=== PATIENT | male | born 1995 | race Caucasian/White ===

== ENCOUNTER 2020-10-23 08:28 | Emergency (ER) | payer BC, MEDICAID ==
--- NOTE | 2020-10-23 09:24 | EDM.PDOC ---
ED HPI GENERAL MEDICAL PROBLEM - General Chief Complaint: Syncope Stated Complaint: SYNCOPE EPISODE Time Seen by Provider: 10/23/20 08:30 Source of Information: Reports: Patient History Limitations: Reports: No Limitations - History of Present Illness INITIAL COMMENTS - FREE TEXT/NARRATIVE: 25-year-old male presents to the emergency department with complaints of a syncopal episode while at work this morning. Patient states he got to work and was walking following a coworker and then states that he woke up laying on the ground. Coworkers witnessed the episode and states that he did come to shortly after the syncopal episode. Patient states he is a daily drinker, however states he did not drink as much last night as he normally does but did have at least 4 drinks. He also states he only ate supper at about 5 PM last evening and it was a pack of Ramen. He did not eat breakfast this morning and he did have an energy drink this morning as well. Patient did not take any medications and denies medical history. Denies shortness of breath, chest pain, palpitations, blurred vision or double vision. Onset: Today, Sudden - Related Data Allergies Allergy/AdvReac Type Severity Reaction Status Date / Time cefixime [From Suprax] Allergy Cannot Verified 10/23/20 08:53 Remember Penicillins Allergy Cannot Verified 10/23/20 08:53 Remember Home Meds: Home Meds Melatonin 3 mg PO ASDIRECTED PRN 10/23/20 [History] Past Medical History HEENT History: Reports: None Cardiovascular History: Reports: None Respiratory History: Reports: None Gastrointestinal History: Reports: GERD Genitourinary History: Reports: None Musculoskeletal History: Reports: None Neurological History: Reports: None Psychiatric History: Reports: None Endocrine/Metabolic History: Reports: None Hematologic History: Reports: None Immunologic History: Reports: None Oncologic (Cancer) History: Reports: None Dermatologic History: Reports: None - Infectious Disease History Infectious Disease History: Reports: None - Past Surgical History HEENT Surgical History: Reports: Oral Surgery, Tonsillectomy GI Surgical History: Reports: None Social & Family History - Family History Cardiac: Reports: CAD Musculoskeletal: Reports: Arthritis Oncologic: Reports: Lung, Other (See Below) - Tobacco Use Tobacco Use Status *Q: Current Every Day Tobacco User Years of Tobacco use: 5 Packs/Tins Daily: 1 - Caffeine Use Caffeine Use: Reports: Energy Drinks - Recreational Drug Use Recreational Drug Use: No Drug Use in Last 12 Months: No ED ROS GENERAL - Review of Systems Review Of Systems: See Below Constitutional: Reports: No Symptoms HEENT: Reports: No Symptoms Respiratory: Reports: No Symptoms Cardiovascular: Reports: Lightheadedness, Syncope Endocrine: Reports: No Symptoms GI/Abdominal: Reports: No Symptoms : Reports: No Symptoms Musculoskeletal: Reports: No Symptoms Skin: Reports: No Symptoms Neurological: Reports: No Symptoms Psychiatric: Reports: No Symptoms Hematologic/Lymphatic: Reports: No Symptoms Immunologic: Reports: No Symptoms - Physical Exam Exam: See Below Exam Limited By: No Limitations General Appearance: Alert, WD/WN, No Apparent Distress Eye Exam: Bilateral Eye: EOMI, PERRL Ears: Normal External Exam, Hearing Grossly Normal Nose: Normal Inspection Throat/Mouth: Normal Inspection, Normal Lips, Normal Voice, No Airway Compromise Head Exam: Atraumatic, Normocephalic Neck: Normal Inspection, Supple, Non-Tender, Full Range of Motion Respiratory/Chest: No Respiratory Distress, Lungs Clear, Normal Breath Sounds, No Accessory Muscle Use, Chest Non-Tender Cardiovascular: Normal Peripheral Pulses, Regular Rate, Rhythm, No Edema, No Murmur GI/Abdominal: Normal Bowel Sounds, Soft, Non-Tender (Male) Exam: Deferred Rectal (Males) Exam: Deferred Neuro Exam (Abbreviated): Alert, Oriented, Normal Cognition Back Exam: Normal Inspection, Full Range of Motion Extremities: Normal Inspection, Normal Range of Motion, Non-Tender, No Pedal Edema, Normal Capillary Refill Psychiatric: Normal Affect, Normal Mood Skin Exam: Warm, Dry, Intact, Normal Color, No Rash #1 Interpretation EKG Date: 10/23/20 Time: 08:50 Rhythm: NSR Rate (Beats/Min): 76 [place]: Normal P-Wave: Present QRS: Normal ST-T: Normal EKG Interpretation Comments: As interpreted by Dr. Galdamez: Sinus rhythm at 76/min, left atrial hypertrophy, nonspecific intraventricular conduction delay, T wave inversion V1 and V2 nonspecific, RSR prime V1 and V2 normal variant Course - Vital Signs Last Recorded V/S: Last Vital Signs Temp 97.1 F 10/23/20 08:57 Pulse 78 10/23/20 08:57 Resp 16 10/23/20 08:57 BP 147/89 H 10/23/20 08:57 Pulse Ox 100 10/23/20 08:57 Orthostatic Blood Pressure [ 133/60 Standing] Orthostatic Blood Pressure [ 134/94 Sitting] Orthostatic Blood Pressure [ 130/80 Supine] - Orders/Labs/Meds Orders: Active Orders 24 hr Category Date Time Status EKG Documentation Completion [RC] STAT Care 10/23/20 09:17 Active Dextrose 5%-Lactated Ringers 1,000 ml Med 10/23/20 09:30 Active IV ASDIRECTED Medication Orders Dextrose/Lactated Ringer's (Dextrose 5%-Lactated Ringers) 1,000 mls @ 999 mls/hr IV ASDIRECTED DEEPAK Last Admin: 10/23/20 09:44 Dose: 999 mls/hr Documented by: FEDE Labs: Laboratory Tests 10/23/20 10/23/20 10/23/20 Range/Units 09:05 09:05 09:05 WBC 6.23 (4.23-9.07) K/mm3 RBC 4.31 L (4.63-6.08) M/mm3 Hgb 15.0 (13.7-17.5) gm/dl Hct 44.0 (40.1-51.0) % MCV 102.1 H (79.0-92.2) fl MCH 34.8 H (25.7-32.2) pg MCHC 34.1 (32.2-35.5) g/dl RDW Std Deviation 45.1 H (35.1-43.9) fL Plt Count 281 (163-337) K/mm3 MPV 10.3 (9.4-12.3) fl Neut % (Auto) 58.7 (34.0-67.9) % Lymph % (Auto) 25.7 (21.8-53.1) % [place] % (Auto) 9.8 (5.3-12.2) % Eos % (Auto) 4.8 (0.8-7.0) Baso % (Auto) 0.8 (0.1-1.2) % Neut # (Auto) 3.66 (1.78-5.38) K/mm3 Lymph # (Auto) 1.60 (1.32-3.57) K/mm3 [place] # (Auto) 0.61 (0.30-0.82) K/mm3 Eos # (Auto) 0.30 (0.04-0.54) K/mm3 Baso # (Auto) 0.05 (0.01-0.08) K/mm3 Sodium 138 (136-145) mEq/L Potassium 3.4 L (3.5-5.1) mEq/L Chloride 98 (98-107) mEq/L Carbon Dioxide 26 (21-32) mEq/L Anion Gap 17.4 H (5-15) BUN 9 (7-18) mg/dL Creatinine 0.9 (0.7-1.3) mg/dL Est Cr Clr Drug Dosing 137.72 mL/min Estimated GFR (MDRD) > 60 (>60) mL/min BUN/Creatinine Ratio 10.0 L (14-18) Glucose 91 (74-106) mg/dL Calcium 9.1 (8.5-10.1) mg/dL Magnesium 2.1 (1.8-2.4) mg/dl Total Bilirubin 0.7 (0.2-1.0) mg/dL AST 125 H (15-37) U/L ALT 133 H (16-63) U/L Alkaline Phosphatase 91 (46-116) U/L Total Protein 7.7 (6.4-8.2) g/dl Albumin 4.4 (3.4-5.0) g/dl Globulin 3.3 gm/dL Albumin/Globulin Ratio 1.3 (1-2) Lipase 78 (73-393) U/L Meds: Medications Generic Name Dose Route Start Last Admin Trade Name Freq PRN Reason Stop Dose Admin Dextrose/Lactated Ringer's 1,000 mls @ 999 mls/hr 10/23/20 09:30 10/23/20 09:44 Dextrose 5%-Lactated Ringers IV 999 mls/hr ASDIRECTED [facility] Administration - Re-Assessments/Exams Free Text/Narrative Re-Assessment/Exam: 10/23/20 09:25 I have not ordered an EKG, CBC, CMP, magnesium, and for patient to have a D5 LR 1 L wide open. 10/23/20 11:36 Labs reveal WBC 6.23 hemoglobin 15.0 MCV 102.1, sodium 138, potassium 3.4, anion gap 17.4, glucose 91, magnesium 2.1, total bili 0.7, AST 125, ALT 133, lipase is 78. 10/23/20 11:48 Patient reports feeling better after receiving a liter of fluids. Liver enzymes are elevated. I did discuss this with the patient regarding the need for him to decrease his drinking as his liver is already showing a fax. Patient's response is that he just knows. I will discharge the patient to home. Departure - Departure Time of Disposition: 11:55 Disposition: Home, Self-Care 01 Condition: Good Clinical Impression: Syncope due to orthostatic hypotension - Discharge Information Instructions: Orthostatic Hypotension, Dehydration, Adult, [id number] Referrals: PCP,None [Primary Care Provider] - Forms: ED Department Discharge Additional Instructions: You were seen in the emergency department with complaints of fainting while at work. An EKG was completed which did not show any issues with your heart. Lab work was completed which does show that your potassium level is slightly low you need to drink 2-3 Gatorade's today. this is likely due to not eating enough and alcohol intake. Your liver enzymes are also highly elevated which show that your history of drinking is having an effect on your liver. You need to stop drinking. Should your condition worsen or change please follow-up with your primary physician or return to the emergency room as needed. Sepsis Event Note (ED) - Evaluation Sepsis Screening Result: No Definite Risk - Focused Exam Vital Signs: Vital Signs Temp Pulse Resp BP Pulse Ox 10/23/20 08:57 97.1 F 78 16 147/89 H 100 - My Orders Last 24 Hours: My Active Orders 10/23/20 09:17 EKG Documentation Completion [RC] STAT 10/23/20 09:30 Dextrose 5%-Lactated Ringers 1,000 ml IV ASDIRECTED - Assessment/Plan Last 24 Hours: My Active Orders 10/23/20 09:17 EKG Documentation Completion [RC] STAT 10/23/20 09:30 Dextrose 5%-Lactated Ringers 1,000 ml IV ASDIRECTED
[2020-10-23] MEDS ORDERED: Dextrose 5%-Lactated Ringers 1,000 ML IV SCH (09:30)
== END 2020-10-23 12:30 | disposition home or self-care (01) ==
LOC: JD.ED 08:28
DX: I95.1 Orthostatic hypotension (principal); F17.210 Nicotine dependence, cigarettes, uncomplicated; Z88.1 Allergy status to other antibiotic agents; Z88.0 Allergy status to penicillin
CPT/HCPCS: 36415; 80053; 83690; 83735; 85025; 93005; 99284; J7121; 93010; 99283

== ENCOUNTER 2021-08-27 13:30 | Emergency (ER) | payer SELFPAY ==
[2021-08-27] MEDS ORDERED: Sodium Chloride 0.9% 1,000 ML IV ONE (14:31)
[2021-08-27] MEDS ORDERED: Sodium Chloride 0.9% 10 ML Syringe FLUSH PRN (14:31)
--- NOTE | 2021-08-27 15:01 | EDM.PDOC ---
ED HPI GENERAL MEDICAL PROBLEM - General Chief Complaint: Drug or Alcohol Abuse Stated Complaint: MEDICAL CHECK Time Seen by Provider: 08/27/21 14:31 Source of Information: Reports: Patient, RN Notes Reviewed History Limitations: Reports: No Limitations - History of Present Illness INITIAL COMMENTS - FREE TEXT/NARRATIVE: Patient is a 26-year-old male who presents to the ER for medical clearance to be admitted to [facility]. Patient states he is an everyday drinker, he likes to drink vodka. States that he is only tried to stop drinking one time before, he got about 24 hours in and started feeling pretty rotten so he continued drinking. He states that he used to drink a lot heavier, but is now down to about 7 shooters a day. He is denying any sick-like symptoms fevers or chills, cough or shortness of breath or any sort of nausea/vomiting/diarrhea. Patient states he would like to stop drinking at this time, as he is having increasing depression in his life, and has realized that it is "ruining his life" so he would like to make a change for the better. States his last alcohol intake was around 8 or 9 this morning. - Related Data Allergies Allergy/AdvReac Type Severity Reaction Status Date / Time cefixime [From Suprax] Allergy Cannot Verified 08/27/21 14:01 Remember Penicillins Allergy Cannot Verified 08/27/21 14:01 Remember Home Meds: Home Meds Melatonin 3 mg PO ASDIRECTED PRN 10/23/20 [History] LORazepam [Ativan] 1 mg PO TID #12 tab 08/27/21 [Rx] Ondansetron [Zofran ODT] 4 mg PO Q8H #15 tab.dis 08/27/21 [Rx] Past Medical History HEENT History: Reports: None Cardiovascular History: Reports: None Respiratory History: Reports: None Gastrointestinal History: Reports: GERD Genitourinary History: Reports: None Musculoskeletal History: Reports: None Neurological History: Reports: None Psychiatric History: Reports: None Endocrine/Metabolic History: Reports: None Hematologic History: Reports: None Immunologic History: Reports: None Oncologic (Cancer) History: Reports: None Dermatologic History: Reports: None - Infectious Disease History Infectious Disease History: Reports: None - Past Surgical History HEENT Surgical History: Reports: Oral Surgery, Tonsillectomy GI Surgical History: Reports: None Social & Family History - Family History Cardiac: Reports: CAD Musculoskeletal: Reports: Arthritis Oncologic: Reports: Lung, Other (See Below) - Tobacco Use Tobacco Use Status *Q: Never Tobacco User - Caffeine Use Caffeine Use: Reports: Energy Drinks - Alcohol Use Alcohol Use History: Yes ED ROS GENERAL - Review of Systems Review Of Systems: Comprehensive ROS is negative, except as noted in HPI. ED EXAM, GENERAL - Physical Exam Exam: See Below Exam Limited By: No Limitations General Appearance: Alert, WD/WN, No Apparent Distress Respiratory/Chest: No Respiratory Distress, Lungs Clear, Normal Breath Sounds, No Accessory Muscle Use, Chest Non-Tender Cardiovascular: Normal Peripheral Pulses, Regular Rate, Rhythm, No Edema Extremities: Normal Inspection, Normal Capillary Refill Neurological: Alert, Oriented, Normal Cognition, No Motor/Sensory Deficits Psychiatric: Normal Affect, Normal Mood Skin Exam: Warm, Dry, Intact, Normal Color, No Rash Course - Vital Signs Last Recorded V/S: Last Vital Signs Temp 98.7 F 08/27/21 13:59 Pulse 78 08/27/21 13:59 Resp 18 08/27/21 13:59 BP 127/76 08/27/21 13:59 Pulse Ox 98 08/27/21 13:59 - Orders/Labs/Meds Orders: Active Orders 24 hr Category Date Time Status Peripheral IV Care [RC] . DIRECTED Care 08/27/21 14:32 Active Sodium Chloride 0.9% [Saline Flush] Med 08/27/21 14:31 Active 10 ml FLUSH ASDIRECTED PRN Peripheral IV Insertion Adult [OM.PC] Stat Oth 08/27/21 14:32 Ordered Medication Orders Sodium Chloride (Sodium Chloride 0.9% 10 Ml Syringe) 10 ml FLUSH ASDIRECTED PRN PRN Reason: Keep Vein Open Last Admin: 08/27/21 14:50 Dose: 10 ml Documented by: KRIS Labs: Laboratory Tests 08/27/21 08/27/21 08/27/21 Range/Units 14:50 14:50 15:00 WBC 6.35 (4.23-9.07) K/mm3 RBC 4.60 L (4.63-6.08) M/mm3 Hgb 16.1 (13.7-17.5) gm/dl Hct 47.3 (40.1-51.0) % MCV 102.8 H (79.0-92.2) fl MCH 35.0 H (25.7-32.2) pg MCHC 34.0 (32.2-35.5) g/dl RDW Std Deviation 48.5 H (35.1-43.9) fL Plt Count 343 H (163-337) K/mm3 MPV 10.8 (9.4-12.3) fl Neut % (Auto) 56.1 (34.0-67.9) % Lymph % (Auto) 27.2 (21.8-53.1) % [place] % (Auto) 10.2 (5.3-12.2) % Eos % (Auto) 5.4 (0.8-7.0) Baso % (Auto) 0.9 (0.1-1.2) % Neut # (Auto) 3.56 (1.78-5.38) K/mm3 Lymph # (Auto) 1.73 (1.32-3.57) K/mm3 [place] # (Auto) 0.65 (0.30-0.82) K/mm3 Eos # (Auto) 0.34 (0.04-0.54) K/mm3 Baso # (Auto) 0.06 (0.01-0.08) K/mm3 Sodium 142 (136-145) mEq/L Potassium 4.4 (3.5-5.1) mEq/L Chloride 103 (98-107) mEq/L Carbon Dioxide 27 (21-32) mEq/L Anion Gap 16.4 H (5-15) BUN 6 L (7-18) mg/dL Creatinine 0.8 (0.7-1.3) mg/dL Est Cr Clr Drug Dosing 153.58 mL/min Estimated GFR (MDRD) > 60 (>60) mL/min BUN/Creatinine Ratio 7.5 L (14-18) Glucose 90 (70-99) mg/dL Calcium 9.8 (8.5-10.1) mg/dL Total Bilirubin 0.4 (0.2-1.0) mg/dL AST 42 H (15-37) U/L ALT 70 H (16-63) U/L Alkaline Phosphatase 85 (46-116) U/L Total Protein 7.7 (6.4-8.2) g/dl Albumin 4.5 (3.4-5.0) g/dl Globulin 3.2 gm/dL Albumin/Globulin Ratio 1.4 (1-2) Ethyl Alcohol 0.02 (0.00) gm% SARS-CoV-2 RNA (JUAN C) Negative (NEGATIVE) Meds: Medications Generic Name Dose Route Start Last Admin Trade Name Dottie PRN Reason Stop Dose Admin Sodium Chloride 10 ml 08/27/21 14:31 08/27/21 14:50 Sodium Chloride 0.9% 10 Ml Syringe FLUSH 10 ml ASDIRECTED PRN Administration Keep Vein Open Discontinued Medications Generic Name Dose Route Start Last Admin Trade Name Dottie PRN Reason Stop Dose Admin Sodium Chloride 1,000 mls @ 999 mls/hr 08/27/21 14:31 08/27/21 14:50 Normal Saline IV 08/27/21 15:31 999 mls/hr ONETIME ONE Administration - Re-Assessments/Exams Free Text/Narrative Re-Assessment/Exam: 08/27/21 15:00 Patient presents to the ER for medical clearance. We will go ahead and get some basic labs, and do a Covid swab just to make sure that he is not an asymptomatic carrier due to him going into a [facility] type setting. Patient is able to talk with me pretty normally, so he should be able to be expeditiously discharged into the care [facility]; pending normal labs and work-up. 08/27/21 16:08 Patient's labs have resulted, he is Covid negative, blood alcohol level is 0.02. Metabolic panel is unremarkable for any acute issues as well. We will go ahead and discharge him into the care of [facility] at this time. Departure - Departure Time of Disposition: 16:09 Disposition: DC/Tfer to Other 70 Condition: Good Clinical Impression: Alcohol abuse, General medical examination - Discharge Information *PRESCRIPTION DRUG MONITORING PROGRAM REVIEWED*: No *COPY OF PRESCRIPTION DRUG MONITORING REPORT IN PATIENT FRANCISCA: No Prescriptions: LORazepam [Ativan] 1 mg PO TID #12 tab Ondansetron [Zofran ODT] 4 mg PO Q8H #15 tab.dis Instructions: Alcohol Use Disorder Referrals: PCP,None [Primary Care Provider] - Forms: ED Department Discharge Additional Instructions: You were evaluated in the ER today for medical clearance to be admitted into a crisis bed at [facility]. Your blood alcohol level was found to be 0.02, you have been given IV fluids while you were in the ER. Upon discharge, your vitals were stable, and you have been deemed fit to go to the crisis bed in [facility] for further alcohol detox management. You have been given 2 different prescriptions: Ativan (lorazepam), you will need to take 1 tab TID x2 days, then 1 tab BID x2 days, then 1 tab daily x2 days. Zofran (ondansetron), you will take 1 tablet every 8 hours dissolvable in your tongue for nausea. This medication was electronically sent to the [place] [facility] located in the [employer] store. Please do not hesitate to return to the ER at any time if your symptoms change or worsen. Sepsis Event Note (ED) - Evaluation Sepsis Screening Result: No Definite Risk - Focused Exam Vital Signs: Vital Signs Temp Pulse Resp BP Pulse Ox 08/27/21 13:59 98.7 F 78 18 127/76 98 - My Orders Last 24 Hours: My Active Orders 08/27/21 14:31 Sodium Chloride 0.9% [Saline Flush] 10 ml FLUSH ASDIRECTED PRN 08/27/21 14:32 Peripheral IV Care [RC] . DIRECTED Peripheral IV Insertion Adult [OM.PC] Stat - Assessment/Plan Last 24 Hours: My Active Orders 08/27/21 14:31 Sodium Chloride 0.9% [Saline Flush] 10 ml FLUSH ASDIRECTED PRN 08/27/21 14:32 Peripheral IV Care [RC] . DIRECTED Peripheral IV Insertion Adult [OM.PC] Stat
== END 2021-08-27 17:09 | disposition other institution (70) ==
LOC: JD.ED 13:30
DX: F10.10 Alcohol abuse, uncomplicated (principal); Y90.0 Blood alcohol level of less than 20 mg/100 ml; Z88.1 Allergy status to other antibiotic agents; Z88.0 Allergy status to penicillin; Z20.822 Contact with and (suspected) exposure to COVID-19
CPT/HCPCS: 36415; 80053; 80307; 85025; 87635; 99283; J7030; U0002

== ENCOUNTER 2021-10-24 12:46 | Emergency (ER) | payer SELFPAY ==
[2021-10-24] MEDS ORDERED: Sodium Chloride 0.9% 1,000 ML IV ONE (13:46)
[2021-10-24] MEDS ORDERED: Ondansetron 4 MG/2 ML SDV IVPUSH ONE (13:46)
--- NOTE | 2021-10-24 13:47 | EDM.PDOC ---
<Rosa Elena Greenberg V - Last Filed: 10/24/21 16:49> ED HPI GENERAL MEDICAL PROBLEM - General Chief Complaint: General Stated Complaint: mental health Time Seen by Provider: 10/24/21 12:59 - Related Data Allergies Allergy/AdvReac Type Severity Reaction Status Date / Time cefixime [From Suprax] Allergy Cannot Verified 10/24/21 13:03 Remember Penicillins Allergy Cannot Verified 10/24/21 13:03 Remember Home Meds: Home Meds LORazepam [Ativan] 1 mg PO TID #12 tab 10/24/21 [Rx] Ondansetron [Zofran ODT] 4 mg PO Q8H #15 tab.dis 10/24/21 [Rx] Course - Re-Assessments/Exams Free Text/Narrative Re-Assessment/Exam: 10/24/21 16:36 Patient Case taken over by PETAR Rivera. She did tell me that the patient is supposed to be evaluated by [facility], and to return there for alcohol detox. Apparently they were fairly busy, so we will await them for ongoing management. Likely the patient can be discharged into their care with Ativan and Zofran. 10/24/21 16:49 Was made aware by RN taking care of the patient that patient is cleared to go to [facility] once he is medically stable, I will provide him with some Ativan and Zofran tablets for ongoing management and then he can be discharged into the care of [facility] services. Departure - Departure Time of Disposition: 16:50 Disposition: Home, Self-Care 01 Condition: Good Clinical Impression: Alcohol abuse Alcohol withdrawal Qualifiers: Complication of substance-induced condition: uncomplicated Qualified Code(s): F10.230 - Alcohol dependence with withdrawal, uncomplicated - Discharge Information *PRESCRIPTION DRUG MONITORING PROGRAM REVIEWED*: Yes *COPY OF PRESCRIPTION DRUG MONITORING REPORT IN PATIENT FRANCISCA: No Prescriptions: LORazepam [Ativan] 1 mg PO TID #12 tab Ondansetron [Zofran ODT] 4 mg PO Q8H #15 tab.dis Instructions: Alcohol Abuse and Nutrition, Alcohol Withdrawal Syndrome, [id number] Referrals: PCP,None [Primary Care Provider] - Forms: ED Department Discharge Additional Instructions: You were evaluated in the ER today for medical clearance to be admitted into a crisis bed at [facility]. Your blood alcohol level was found to be 0.19. Upon discharge, your vitals were stable, and you have been deemed fit to go to the crisis bed in [facility] for further alcohol detox management. You have been given 2 different prescriptions: Ativan (lorazepam), you will need to take 1 tab TID x2 days, then 1 tab BID x2 days, then 1 tab daily x2 days. Zofran (ondansetron), you will take 1 tablet every 8 hours dissolvable in your t ongue for nausea. These medications were electronically prescribed to this medication was electronically sent to the [facility] pharmacy located on [place]. Please do not hesitate to return to the ER at any time if your symptoms change or worsen. <Jens Petersen - Last Filed: 10/28/21 20:09> ED HPI GENERAL MEDICAL PROBLEM - General Source of Information: Reports: Patient History Limitations: Reports: No Limitations - History of Present Illness INITIAL COMMENTS - FREE TEXT/NARRATIVE: 26-year-old male presents the emergency department today with complaints of suicidal thoughts and alcohol abuse. Patient states that he has had suicidal thoughts since Thursday. States that he was at work today and he did attempt to cut his wrist with a crepe box tender. Reports that his boss walked in and caught him and stopped him from doing so. Patient's mom then did bring him to the emergency department. He states on Thursday he got severely depressed and was contemplating suicide. He states he did call his mom and they drove around for several hours and he was able to vent. However he then went home and got extremely intoxicated and took a handful of household medications. He is unsure what he took however he states Tylenol was one of the medications. States that starting about the age 18 he began binge drinking however since the age of 23 he has been drinking daily to the point of severe intoxication. He states he drinks at least a liter of vodka daily. Denies any homicidal thoughts. He denies visual or auditory hallucinations. States he drank heavily last evening and already has been drinking this morning with his last drink being at approximately 3 hours ago. States he does have a history of recreational drug use in the past, specifically marijuana and cocaine however he states it has been approximately 4 to 5 years since he has last used. He does smoke cigarettes and smokes approximately 1 pack/day. States that approximately 1 month ago he did stay at [facility] for approximately 3 days and went through alcohol detox. He states that after the 3 days they let him go with recommendations that he follow-up with a psychiatrist or counselor and he did not. He denies any history of seizure. States he has been eating well and had a normal appetite. States that since about the age of 18 he has had difficulty sleeping. Difficulty falling asleep and difficulty staying asleep. Past Medical History HEENT History: Reports: None Cardiovascular History: Reports: None Respiratory History: Reports: None Gastrointestinal History: Reports: GERD Genitourinary History: Reports: None Musculoskeletal History: Reports: None Neurological History: Reports: None Psychiatric History: Reports: None Endocrine/Metabolic History: Reports: None Hematologic History: Reports: None Immunologic History: Reports: None Oncologic (Cancer) History: Reports: None Dermatologic History: Reports: None - Infectious Disease History Infectious Disease History: Reports: None - Past Surgical History HEENT Surgical History: Reports: Oral Surgery, Tonsillectomy GI Surgical History: Reports: None Social & Family History - Family History Cardiac: Reports: CAD Musculoskeletal: Reports: Arthritis Oncologic: Reports: Lung, Other (See Below) - Tobacco Use Tobacco Use Status *Q: Former Tobacco User Years of Tobacco use: 6 Packs/Tins Daily: 1 Used Tobacco, but Quit: No - Caffeine Use Caffeine Use: Reports: Coffee, Energy Drinks, Soda - Alcohol Use Days Per Week of Alcohol Use: 5 Number of Drinks Per Day: 8 Total Drinks Per Week: 40 - Recreational Drug Use Recreational Drug Use: No ED ROS GENERAL - Review of Systems Review Of Systems: Comprehensive ROS is negative, except as noted in HPI. ED EXAM, GENERAL - Physical Exam Exam: See Below Exam Limited By: No Limitations General Appearance: Alert, WD/WN, No Apparent Distress Ears: Normal External Exam, Hearing Grossly Normal Nose: Normal Inspection Throat/Mouth: Normal Inspection, Normal Lips, Normal Voice, No Airway Compromise Head: Atraumatic Neck: Normal Inspection, Supple Respiratory/Chest: No Respiratory Distress, Lungs Clear, Normal Breath Sounds, No Accessory Muscle Use, Chest Non-Tender Cardiovascular: Normal Peripheral Pulses, Regular Rate, Rhythm, No Edema, No Murmur GI/Abdominal: Normal Bowel Sounds, Soft, Non-Tender, No Distention (Male) Exam: Deferred Rectal (Males) Exam: Deferred Back Exam: Normal Inspection Extremities: Normal Range of Motion, Non-Tender, No Pedal Edema, Normal Capillary Refill, Other (2 cm superficial vertical laceration noted to left inner wrist) Neurological: Alert, Oriented, Normal Cognition Psychiatric: Flat Affect Skin Exam: Warm, Dry, Normal Color, No Rash, Wound/Incision (2 cm superficial vertical laceration noted to left inner wrist) Lymphatic: No Adenopathy #1 Interpretation EKG Date: 10/24/21 Time: 14:28 Rhythm: NSR Rate (Beats/Min): 69 [place]: Normal P-Wave: Present QRS: Normal ST-T: Normal QT: Normal Comparison: NA - No Prior EKG EKG Interpretation Comments: Per Dr. Morgan interpretation: Sinus rhythm at a rate of 69 bpm; Q waves V2 and V3; slight ST depression in aVL Course - Vital Signs Text/Narrative:: As stated above, patient presents with history of alcoholism and suicidal ideations with a near attempt this morning. Physical exam is essentially unremarkable. Will obtain lab studies as well as Covid swab. At this time patient is agreeable to go for inpatient treatment. I have paged our hospital socially responsible investment adviser, Steff, to assist with this. We will have nursing staff place an IV. I have ordered for the patient to receive a liter of normal saline as well as Zofran 4 mg IV for nausea. Last Recorded V/S: Last Vital Signs Temp 98.2 F 10/24/21 12:56 Pulse 94 10/24/21 12:56 Resp 16 10/24/21 12:56 BP 128/83 10/24/21 12:56 Pulse Ox 99 10/24/21 12:56 - Orders/Labs/Meds Labs: Laboratory Tests 10/24/21 10/24/21 10/24/21 Range/Units 14:28 14:28 14:28 WBC 4.59 (4.23-9.07) K/mm3 RBC 4.42 L (4.63-6.08) M/mm3 Hgb 15.6 (13.7-17.5) gm/dl Hct 45.6 (40.1-51.0) % MCV 103.2 H (79.0-92.2) fl MCH 35.3 H (25.7-32.2) pg MCHC 34.2 (32.2-35.5) g/dl RDW Std Deviation 46.1 H (35.1-43.9) fL Plt Count 276 (163-337) K/mm3 MPV 10.5 (9.4-12.3) fl Neut % (Auto) 57.2 (34.0-67.9) % Lymph % (Auto) 29.4 (21.8-53.1) % [place] % (Auto) 9.2 (5.3-12.2) % Eos % (Auto) 3.1 (0.8-7.0) Baso % (Auto) 1.1 (0.1-1.2) % Neut # (Auto) 2.63 (1.78-5.38) K/mm3 Lymph # (Auto) 1.35 (1.32-3.57) K/mm3 [place] # (Auto) 0.42 (0.30-0.82) K/mm3 Eos # (Auto) 0.14 (0.04-0.54) K/mm3 Baso # (Auto) 0.05 (0.01-0.08) K/mm3 Sodium 141 (136-145) mEq/L Potassium 4.6 (3.5-5.1) mEq/L Chloride 104 (98-107) mEq/L Carbon Dioxide 28 (21-32) mEq/L Anion Gap 13.6 (5-15) BUN 9 (7-18) mg/dL Creatinine 0.8 (0.7-1.3) mg/dL Est Cr Clr Drug Dosing 153.58 mL/min Estimated GFR (MDRD) > 60 (>60) mL/min BUN/Creatinine Ratio 11.3 L (14-18) Glucose 93 (70-99) mg/dL Calcium 8.8 (8.5-10.1) mg/dL Magnesium 2.1 (1.8-2.4) mg/dL Total Bilirubin 0.5 (0.2-1.0) mg/dL AST 54 H (15-37) U/L ALT 58 (16-63) U/L Alkaline Phosphatase 91 (46-116) U/L Total Protein 7.5 (6.4-8.2) g/dl Albumin 4.3 (3.4-5.0) g/dl Globulin 3.2 gm/dL Albumin/Globulin Ratio 1.3 (1-2) TSH 3rd Generation 0.735 (0.358-3.74) uIU/mL Urine Color (Yellow) Urine Appearance (Clear) Urine pH (5.0-8.0) Ur Specific [place] (1.005-1.030) Urine Protein (Negative) Urine Glucose (UA) (Negative) Urine Ketones (Negative) Urine Occult Blood (Negative) Urine Nitrite (Negative) Urine Bilirubin (Negative) Urine Urobilinogen (0.2-1.0) Ur Leukocyte Esterase (Negative) Salicylates 0.8 L (2.8-20) mg/dL Urine Opiates Screen (HIQBRO=639) Ur Buprenorphine Scrn (CUTOFF=10) Ur Oxycodone Screen (YTQ5XF=277) Urine Methadone Screen (ZGW6XN=359) Ur Propoxyphene Screen (ALORXT=093) Acetaminophen 0 L (10-30) ug/mL Ur Barbiturates Screen (XSFPMT=146) Ur Tricyclics Screen (VLFEAH=806) Ur Phencyclidine Scrn (CUTOFF=25) Ur Amphetamine Screen (RQLOMN=650) U Methamphetamines Scrn (CIUYVN=117) U Benzodiazepines Scrn (VYXHLL=090) U Cocaine Metab Screen (OWXEYI=181) U Marijuana (THC) Screen (CUTOFF=50) Ethyl Alcohol 0.19 (0.00) gm% 10/24/21 10/24/21 Range/Units 15:35 15:35 WBC (4.23-9.07) K/mm3 RBC (4.63-6.08) M/mm3 Hgb (13.7-17.5) gm/dl Hct (40.1-51.0) % MCV (79.0-92.2) fl MCH (25.7-32.2) pg MCHC (32.2-35.5) g/dl RDW Std Deviation (35.1-43.9) fL Plt Count (163-337) K/mm3 MPV (9.4-12.3) fl Neut % (Auto) (34.0-67.9) % Lymph % (Auto) (21.8-53.1) % [place] % (Auto) (5.3-12.2) % Eos % (Auto) (0.8-7.0) Baso % (Auto) (0.1-1.2) % Neut # (Auto) (1.78-5.38) K/mm3 Lymph # (Auto) (1.32-3.57) K/mm3 [place] # (Auto) (0.30-0.82) K/mm3 Eos # (Auto) (0.04-0.54) K/mm3 Baso # (Auto) (0.01-0.08) K/mm3 Sodium (136-145) mEq/L Potassium (3.5-5.1) mEq/L Chloride (98-107) mEq/L Carbon Dioxide (21-32) mEq/L Anion Gap (5-15) BUN (7-18) mg/dL Creatinine (0.7-1.3) mg/dL Est Cr Clr Drug Dosing mL/min Estimated GFR (MDRD) (>60) mL/min BUN/Creatinine Ratio (14-18) Glucose (70-99) mg/dL Calcium (8.5-10.1) mg/dL Magnesium (1.8-2.4) mg/dL Total Bilirubin (0.2-1.0) mg/dL AST (15-37) U/L ALT (16-63) U/L Alkaline Phosphatase (46-116) U/L Total Protein (6.4-8.2) g/dl Albumin (3.4-5.0) g/dl Globulin gm/dL Albumin/Globulin Ratio (1-2) TSH 3rd Generation (0.358-3.74) uIU/mL Urine Color Yellow (Yellow) Urine Appearance Clear (Clear) Urine pH 7.0 (5.0-8.0) Ur Specific [place] 1.020 (1.005-1.030) Urine Protein Negative (Negative) Urine Glucose (UA) Negative (Negative) Urine Ketones Negative (Negative) Urine Occult Blood Negative (Negative) Urine Nitrite Negative (Negative) Urine Bilirubin Negative (Negative) Urine Urobilinogen 4.0 H (0.2-1.0) Ur Leukocyte Esterase Negative (Negative) Salicylates (2.8-20) mg/dL Urine Opiates Screen Negative (IGNEGF=415) Ur Buprenorphine Scrn Negative (CUTOFF=10) Ur Oxycodone Screen Negative (BLZ7NF=612) Urine Methadone Screen Negative (TYW3SR=097) Ur Propoxyphene Screen Negative (DKZXWC=294) Acetaminophen (10-30) ug/mL Ur Barbiturates Screen Negative (EUVRKZ=638) Ur Tricyclics Screen Negative (CEVYOI=526) Ur Phencyclidine Scrn Negative (CUTOFF=25) Ur Amphetamine Screen Negative (WDNPUW=316) U Methamphetamines Scrn Negative (DKFWTC=416) U Benzodiazepines Scrn Negative (LWXUVV=396) U Cocaine Metab Screen Negative (BQOKIA=973) U Marijuana (THC) Screen Negative (CUTOFF=50) Ethyl Alcohol (0.00) gm% Meds: Medications Discontinued Medications Generic Name Dose Route Start Last Admin Trade Name Freq PRN Reason Stop Dose Admin Sodium Chloride 1,000 mls @ 999 mls/hr 10/24/21 13:46 10/24/21 14:30 Normal Saline IV 10/24/21 14:46 999 mls/hr ONETIME ONE Administration Lorazepam 1 mg 10/24/21 16:06 10/24/21 17:04 Lorazepam 1 Mg Tab PO 10/24/21 16:07 1 mg ONETIME ONE Administration Ondansetron HCl 4 mg 10/24/21 13:46 10/24/21 14:30 Ondansetron 4 Mg/2 Ml Sdv IVPUSH 10/24/21 13:47 4 mg ONETIME ONE Administration - Re-Assessments/Exams Free Text/Narrative Re-Assessment/Exam: 10/24/21 15:40 Hospital socially responsible investment adviserSteff has been in to evaluate the patient. Patient is requesting to go back to [facility] [place] for treatment. [facility] services who will be here to evaluate the patient. 10/24/21 16:07 Hematology is essentially unremarkable Chemistry reveals an AST of 54, ALT 58, TSH 0.735 Urinalysis reveals 4.0 urobilinogen Toxicology reveals a salicylate level of 0.8, acetaminophen level 0, ethyl alcohol 0.19 and urine drug screen is negative Sepsis Event Note (ED) - Evaluation Sepsis Screening Result: No Definite Risk
[2021-10-24 15:12] LABS: ACETAMINOPHEN 0 ug/mL (10-30)
[2021-10-24] MEDS ORDERED: LORazepam 1 MG Tab PO ONE (16:06)
== END 2021-10-24 17:00 | disposition home or self-care (01) ==
LOC: JD.ED 12:46
DX: F10.230 Alcohol dependence with withdrawal, uncomplicated (principal); Z88.0 Allergy status to penicillin; Z88.1 Allergy status to other antibiotic agents; Z87.891 Personal history of nicotine dependence; Y90.5 Blood alcohol level of 100-119 mg/100 ml
CPT/HCPCS: 36415; 80053; 80143; 80179; 80306; 80307; 81003; 83735; 84443; 85025; 93005; 96374; 99285; A9270; J2405; J7030

== ENCOUNTER 2022-04-08 13:59 | Emergency (ER) | payer SELFPAY ==
[2022-04-08] MEDS ORDERED: Sodium Chloride 0.9% 10 ML Syringe FLUSH PRN (14:49)
[2022-04-08] MEDS ORDERED: Ondansetron 4 MG/2 ML SDV IVPUSH ONE (14:49)
[2022-04-08] MEDS ORDERED: Famotidine 20 MG/2 ML SDV IVPUSH ONE (14:49)
[2022-04-08] MEDS ORDERED: Sodium Chloride 0.9% 1,000 ML IV SCH ×2 (15:00→16:45)
[2022-04-08 15:28] LABS: ESTIMATED GFR > 60 mL/min (>60)
[2022-04-08] MEDS ORDERED: Potassium Chloride 10 MEQ in Premix Bag 1 BAG IV ONE (16:44)
[2022-04-08] MEDS ORDERED: LORazepam 2 MG/ML SDV IVPUSH ONE (18:10)
== END 2022-04-08 19:21 | disposition home or self-care (01) ==
LOC: JD.ED 13:59
DX: K29.20 Alcoholic gastritis without bleeding (principal); E87.6 Hypokalemia; F10.920 Alcohol use, unspecified with intoxication, uncomplicated; K21.9 Gastro-esophageal reflux disease without esophagitis; Z87.891 Personal history of nicotine dependence; Z79.899 Other long term (current) drug therapy; Z88.0 Allergy status to penicillin; Z88.1 Allergy status to other antibiotic agents
CPT/HCPCS: 36415; 80053; 80306; 80307; 83690; 83735; 85025; 96361; 96365; 96366; 96375; 99284; J2060; J2405; J3480; J3490; J7030; 99283

== ENCOUNTER 2022-06-18 21:41 | Emergency (ER) | payer SELFPAY ==
[2022-06-18] MEDS ORDERED: Sodium Chloride 0.9% 1,000 ML IV ONE (22:55)
[2022-06-18] MEDS ORDERED: Ondansetron 4 MG/2 ML SDV IVPUSH ONE (23:20)
[2022-06-18] MEDS ORDERED: Pantoprazole 40 MG Vial IVPUSH ONE (23:20)
[2022-06-18] MEDS ORDERED: Alum Hydrox/Mag Hydrox/Simeth 30 ML, Lidocaine 2% 15 ML PO ONE ×2 (23:20)
[2022-06-18 23:48] LABS: ACETAMINOPHEN 0 ug/mL (10-30); ESTIMATED GFR 120 mL/min (>60)
== END 2022-06-19 02:52 | disposition home or self-care (01) ==
LOC: JD.ED 21:41
DX: K29.20 Alcoholic gastritis without bleeding (principal); K21.9 Gastro-esophageal reflux disease without esophagitis; Z88.1 Allergy status to other antibiotic agents; Z88.0 Allergy status to penicillin; Z79.899 Other long term (current) drug therapy; Z87.891 Personal history of nicotine dependence
CPT/HCPCS: 36415; 80053; 80143; 80179; 80307; 83690; 83735; 84443; 85025; 96361; 96374; 96375; 99284-25; A9270-GY; C9113; J2405; J7030

== ENCOUNTER 2022-08-09 03:59 | Emergency (ER) | payer MEDICAID ==
[2022-08-09] MEDS ORDERED: LORazepam 2 MG/ML SDV ONE ×2 (06:02→12:08)
[2022-08-09] MEDS ORDERED: LORazepam 2 MG/ML SDV IVPUSH ONE ×2 (06:07→12:12)
[2022-08-09] MEDS ORDERED: Lactated Ringers 1,000 ML IV ONE (06:10)
[2022-08-09] MEDS ORDERED: MVI, Adult with Vitamin K 10 ML in Lactated Ringers 1,000 ML IV ONE ×2 (06:12)
[2022-08-09] MEDS ORDERED: Magnesium Sulfate/Water 2 GM in Premix Bag 1 BAG IV ONE (06:12)
[2022-08-09] MEDS ORDERED: Folic Acid 50 MG/10 ML MDV IV ONE (06:14)
[2022-08-09] MEDS ORDERED: Lactated Ringers 1,000 ML IV SCH (06:15)
[2022-08-09 06:43] LABS: ESTIMATED GFR 120 mL/min (>60)
[2022-08-09] MEDS ORDERED: Thiamine 100 MG in Sodium Chloride 0.9% 100 ML IV ONE (08:08)
[2022-08-09] MEDS ORDERED: Thiamine 200 MG/2 ML MDV IV ONE (08:30)
== END 2022-08-09 13:00 ==
LOC: JD.ED 03:59
DX: R56.9 Unspecified convulsions (principal); R74.01 Elevation of levels of liver transaminase levels; F10.230 Alcohol dependence with withdrawal, uncomplicated; K21.9 Gastro-esophageal reflux disease without esophagitis; F17.210 Nicotine dependence, cigarettes, uncomplicated; Z88.1 Allergy status to other antibiotic agents; Z88.0 Allergy status to penicillin; Z79.899 Other long term (current) drug therapy; Z20.822 Contact with and (suspected) exposure to COVID-19
CPT/HCPCS: 36415; 80053; 80307; 82550; 82977; 85025; 85610; 87635; 96365; 96366; 96368; 96375; 96376; 99285; J2060; J3411; J3475; J7120; 99284; U0002

== ENCOUNTER 2022-09-15 18:56 | Emergency (ER) | payer MEDICAID ==
[2022-09-15] MEDS ORDERED: Ondansetron 4 MG/2 ML SDV IVPUSH ONE (19:06)
[2022-09-15] MEDS ORDERED: Sodium Chloride 0.9% 10 ML Syringe FLUSH PRN (19:06)
[2022-09-15] MEDS ORDERED: Sodium Chloride 0.9% 1,000 ML IV SCH (19:15)
[2022-09-15 20:49] LABS: CORONAVIRUS COVID-19 NAA NEGATIVE (NEGATIVE)
== END 2022-09-15 20:56 | disposition home or self-care (01) ==
LOC: JD.ED 18:56
DX: T50.902A Poisoning by unspecified drugs, medicaments and biological substances, intentional self-harm, initial encounter (principal); R45.851 Suicidal ideations; F10.129 Alcohol abuse with intoxication, unspecified; Z88.1 Allergy status to other antibiotic agents; Z88.0 Allergy status to penicillin; Z79.899 Other long term (current) drug therapy; Z20.822 Contact with and (suspected) exposure to COVID-19
CPT/HCPCS: 0241U; 36415; 80053; 80143; 80179; 80307; 83735; 84443; 85025; 93005; 96361; 96374; 99285; J2405; J3490; J7030

== ENCOUNTER 2023-02-16 02:14 | Emergency (ER) | payer MEDICAID ==
[2023-02-16] MEDS ORDERED: Lactated Ringers 1,000 ML IV SCH (02:30)
[2023-02-16] MEDS ORDERED: Clindamycin HCl 150 MG Cap PO ONE (04:20)
== END 2023-02-16 04:46 | disposition home or self-care (01) ==
LOC: JD.ED 02:14
DX: S31.119A Laceration without foreign body of abdominal wall, unspecified quadrant without penetration into peritoneal cavity, initial encounter (principal); F10.129 Alcohol abuse with intoxication, unspecified; K21.9 Gastro-esophageal reflux disease without esophagitis; Z88.0 Allergy status to penicillin; Z79.899 Other long term (current) drug therapy; Y04.2XXA Assault by strike against or bumped into by another person, initial encounter
CPT/HCPCS: 36415; 70450; 71260; 72125; 74177; 80053; 80306; 80307; 81001; 85025; 85610; 85730; 86850; 86900; 86901; 99284; A9270

== ENCOUNTER 2023-02-23 16:22 | Emergency (ER) | payer MEDICAID | END 2023-02-23 17:03 | disposition home or self-care (01) | LOC: JD.ED 16:22 | DX: Z02.79 Encounter for issue of other medical certificate (principal); K21.9 Gastro-esophageal reflux disease without esophagitis; Z79.899 Other long term (current) drug therapy; Z88.1 Allergy status to other antibiotic agents; Z88.0 Allergy status to penicillin | CPT/HCPCS: 99282; 99283 ==

== ENCOUNTER 2023-04-14 09:45 | Inpatient (IN) | payer OTHER, MEDICAID ==
[2023-04-14] MEDS ORDERED: Sodium Chloride 0.9% 1,000 ML ONE (10:19)
[2023-04-14] MEDS ORDERED: Ondansetron 4 MG/2 ML SDV ONE (10:19)
[2023-04-14 10:21] LABS: BASOPHILS ABSOLUTE AUTO 0.09 K/mm3 (0.01-0.08); BASOPHILS PERCENT AUTO 1.7 % (0.1-1.2); EOSINOPHILS ABSOLUTE AUTO 0.13 K/mm3 (0.04-0.54); EOSINOPHILS PERCENT AUTO 2.5 (0.8-7.0); HEMATOCRIT 44.4 % (40.1-51.0); HEMOGLOBIN 15.8 gm/dl (13.7-17.5); IMMATURE GRAN ABSOLUTE AUTO 0.02 K/mm3 (0.00-0.10); IMMATURE GRAN PERCENT AUTO 0.4 % (<=1.0); LYMPHOCYTES ABSOLUTE AUTO 1.83 K/mm3 (1.32-3.57); LYMPHOCYTES PERCENT AUTO 35.4 % (21.8-53.1); MEAN CORPUSCULAR HEMOGLOBIN 36.2 pg (25.7-32.2); MEAN CORPUSCULAR HGB CONC 35.6 g/dl (32.2-35.5); MEAN CORPUSCULAR VOLUME 101.8 fl (79.0-92.2); MEAN PLATELET VOLUME 10.2 fl (9.4-12.3); MONOCYTES ABSOLUTE AUTO 0.73 K/mm3 (0.30-0.82); MONOCYTES PERCENT AUTO 14.1 % (5.3-12.2); NEUTROPHILS ABSOLUTE AUTO 2.37 K/mm3 (1.78-5.38); NEUTROPHILS PERCENT AUTO 45.9 % (34.0-67.9); PLATELET COUNT,PLT 193 K/mm3 (163-337); RED BLOOD CELL COUNT 4.36 M/mm3 (4.63-6.08); WHITE BLOOD CELL COUNT,WBC 5.17 K/mm3 (4.23-9.07)
[2023-04-14] MEDS ORDERED: LORazepam 2 MG/ML SDV IVPUSH ONE (10:25)
[2023-04-14] MEDS ORDERED: Ondansetron 4 MG/2 ML SDV IVPUSH ONE (10:34)
[2023-04-14] MEDS ORDERED: Sodium Chloride 0.9% 1,000 ML IV ONE (10:34)
[2023-04-14 10:49] LABS: A/G RATIO 1.2 (1-2); ALANINE AMINOTRANSFERASE,ALT 158 U/L (16-63); ALBUMIN 4.3 g/dl (3.4-5.0); ALKALINE PHOSPHATASE 114 U/L (46-116); ANION GAP 16.1 (5-15); ASPARTATE AMNIOTRANSFERASE,AST 218 U/L (15-37); BILIRUBIN TOTAL 0.8 mg/dL (0.2-1.0); BLOOD UREA NITROGEN,BUN 5 mg/dL (7-18); BUN/CREATININE RATIO 6.3 (14-18); CALCIUM 9.1 mg/dL (8.5-10.1); CARBON DIOXIDE,CO2 24 mEq/L (21-32); CHLORIDE,CL 103 mEq/L (98-107); CREATININE 0.8 mg/dL (0.7-1.3); ESTIMATED GFR 124 mL/min (>60); ETHANOL BLOOD MEDICAL 0.36 gm% (0.00); GLUCOSE RANDOM 101 mg/dL (70-99); POTASSIUM,K 3.1 mEq/L (3.5-5.1); PROTEIN TOTAL,TP 7.8 g/dl (6.4-8.2); SODIUM,NA 140 mEq/L (136-145); TSH 1.428 uIU/mL (0.358-3.74)
[2023-04-14 10:50] LABS: ACETAMINOPHEN 0 ug/mL (10-30)
[2023-04-14 11:46] LABS: BARBITURATE SCREEN,URINE NEGATIVE (CUTOFF=200); BENZODIAZEPINES SCREEN,URINE NEGATIVE (CUTOFF=150); BUPRENORPHINE SCREEN,URINE NEGATIVE (CUTOFF=10); METHADONE SCREEN, URINE NEGATIVE (CUT0FF=200); METHAMPHETAMINES SCREEN, URINE NEGATIVE (CUTOFF=500); OXYCODONE SCREEN,URINE NEGATIVE (CUT0FF=100); PROPOXYPHENE SCREEN,URINE NEGATIVE (CUTOFF=300); THC SCREEN,URINE 20 NG/ML NEGATIVE (CUTOFF=50)
[2023-04-14 11:52] LABS: AMPHETAMINES SCREEN, URINE NEGATIVE (CUTOFF=500)
[2023-04-14] MEDS ORDERED: Docusate Sodium 100 MG Cap PO PRN (16:34)
[2023-04-14] MEDS ORDERED: cloNIDine 0.1 MG Tab PO PRN (16:34)
[2023-04-14] MEDS ORDERED: Metoprolol Tartrate 25 MG Tab PO PRN (16:34)
[2023-04-14] MEDS ORDERED: Haloperidol Lactate 5 MG/ML SDV IM PRN (16:34)
[2023-04-14] MEDS ORDERED: Polyethylene Glycol 3350 Powder 17 GM Packet PO PRN (16:34)
[2023-04-14] MEDS ORDERED: Acetaminophen 650 MG Supp RECTAL PRN (16:34)
[2023-04-14] MEDS ORDERED: Multivitamin Tab PO ONE (16:41)
[2023-04-14] MEDS ORDERED: Folic Acid 1 MG Tab PO ONE (16:41)
[2023-04-14] MEDS ORDERED: Thiamine 100 MG Tab PO ONE (16:41)
[2023-04-14] MEDS: Potassium Chloride 10 MEQ in Premix Bag 1 BAG IV SCH ×6 (17:42→22:22)
[2023-04-14] MEDS: Sodium Chloride 0.9% 1,000 ML IV SCH (17:45)
[2023-04-14] MEDS: LORazepam 2 MG/ML SDV IV SCH ×5 (17:54→23:18)
[2023-04-14] MEDS: Acetaminophen 325 MG Tab PO PRN (21:16)
[2023-04-14] MEDS: Ondansetron 4 MG/2 ML SDV IV PRN (23:32)
[2023-04-15] MEDS: LORazepam 2 MG/ML SDV IV SCH ×6 (00:52→21:49)
[2023-04-15] MEDS: Sodium Chloride 0.9% 1,000 ML IV SCH ×3 (05:07→21:49)
[2023-04-15] MEDS: Pantoprazole 40 MG Tab.CR PO SCH (05:07)
[2023-04-15 06:08] LABS: BASOPHILS ABSOLUTE AUTO 0.07 K/mm3 (0.01-0.08); BASOPHILS PERCENT AUTO 1.5 % (0.1-1.2); EOSINOPHILS ABSOLUTE AUTO 0.16 K/mm3 (0.04-0.54); EOSINOPHILS PERCENT AUTO 3.4 (0.8-7.0); LYMPHOCYTES ABSOLUTE AUTO 1.15 K/mm3 (1.32-3.57); LYMPHOCYTES PERCENT AUTO 24.8 % (21.8-53.1); MEAN CORPUSCULAR HEMOGLOBIN 36.1 pg (25.7-32.2); MEAN CORPUSCULAR HGB CONC 34.4 g/dl (32.2-35.5); MEAN CORPUSCULAR VOLUME 104.9 fl (79.0-92.2); MEAN PLATELET VOLUME 10.6 fl (9.4-12.3); MONOCYTES ABSOLUTE AUTO 0.67 K/mm3 (0.30-0.82); MONOCYTES PERCENT AUTO 14.4 % (5.3-12.2); NEUTROPHILS ABSOLUTE AUTO 2.59 K/mm3 (1.78-5.38); NEUTROPHILS PERCENT AUTO 55.9 % (34.0-67.9); PLATELET COUNT,PLT 139 K/mm3 (163-337); RED BLOOD CELL COUNT 3.91 M/mm3 (4.63-6.08); WHITE BLOOD CELL COUNT,WBC 4.64 K/mm3 (4.23-9.07)
[2023-04-15 06:12] LABS: ANION GAP 12.8 (5-15); BUN/CREATININE RATIO 8.6 (14-18); CALCIUM 8.4 mg/dL (8.5-10.1); CREATININE 0.7 mg/dL (0.7-1.3); EST CRCL DRUG DOSING (CG) 173.98 mL/min; MAGNESIUM 1.4 mg/dL (1.8-2.4); POTASSIUM,K 3.8 mEq/L (3.5-5.1)
[2023-04-15 06:16] LABS: HEMOGLOBIN 14.1 gm/dl (13.7-17.5)
[2023-04-15] MEDS: Ondansetron 4 MG Tab.DIS PO PRN ×2 (08:03→17:18)
[2023-04-15] MEDS: Folic Acid 1 MG Tab PO SCH (08:03)
[2023-04-15] MEDS: Thiamine 100 MG Tab PO SCH (08:03)
[2023-04-15] MEDS: LORazepam 1 MG Tab PO SCH ×5 (08:03→18:04)
[2023-04-15] MEDS: Enoxaparin 40 MG/0.4 ML Syringe SUBCUT SCH (08:04)
[2023-04-15] MEDS ORDERED: Magnesium Sulfate/Water 4 GM in Premix Bag 1 BAG IV ONE (09:00)
[2023-04-15] MEDS: Acetaminophen 325 MG Tab PO PRN (19:23)
[2023-04-15] MEDS: Nicotine 14 MG/24 Hr Patch TRDERM SCH (20:05)
[2023-04-15] MEDS: Ondansetron 4 MG/2 ML SDV IV PRN (23:33)
[2023-04-16] MEDS: LORazepam 2 MG/ML SDV IV SCH ×15 (00:28→23:29)
[2023-04-16] MEDS: Ondansetron 4 MG/2 ML SDV IV PRN ×3 (05:32→19:25)
[2023-04-16 05:55] LABS: A/G RATIO 1.2 (1-2); ALBUMIN 3.7 g/dl (3.4-5.0); ANION GAP 13.7 (5-15); BILIRUBIN TOTAL 1.8 mg/dL (0.2-1.0); BUN/CREATININE RATIO 5.7 (14-18); CALCIUM 8.7 mg/dL (8.5-10.1); CREATININE 0.7 mg/dL (0.7-1.3); EST CRCL DRUG DOSING (CG) 173.98 mL/min; POTASSIUM,K 3.7 mEq/L (3.5-5.1); PROTEIN TOTAL,TP 6.8 g/dl (6.4-8.2)
[2023-04-16 06:11] LABS: BASOPHILS ABSOLUTE AUTO 0.04 K/mm3 (0.01-0.08); BASOPHILS PERCENT AUTO 0.8 % (0.1-1.2); EOSINOPHILS ABSOLUTE AUTO 0.21 K/mm3 (0.04-0.54); EOSINOPHILS PERCENT AUTO 4.3 (0.8-7.0); HEMATOCRIT 45.1 % (40.1-51.0); IMMATURE GRAN ABSOLUTE AUTO 0.01 K/mm3 (0.00-0.10); IMMATURE GRAN PERCENT AUTO 0.2 % (<=1.0); LYMPHOCYTES ABSOLUTE AUTO 0.89 K/mm3 (1.32-3.57); LYMPHOCYTES PERCENT AUTO 18.1 % (21.8-53.1); MEAN CORPUSCULAR HEMOGLOBIN 35.9 pg (25.7-32.2); MEAN CORPUSCULAR HGB CONC 34.6 g/dl (32.2-35.5); MEAN CORPUSCULAR VOLUME 103.9 fl (79.0-92.2); MEAN PLATELET VOLUME 10.8 fl (9.4-12.3); MONOCYTES ABSOLUTE AUTO 0.57 K/mm3 (0.30-0.82); MONOCYTES PERCENT AUTO 11.6 % (5.3-12.2); PLATELET COUNT,PLT 146 K/mm3 (163-337); RED BLOOD CELL COUNT 4.34 M/mm3 (4.63-6.08); WHITE BLOOD CELL COUNT,WBC 4.92 K/mm3 (4.23-9.07)
[2023-04-16] MEDS: Pantoprazole 40 MG Tab.CR PO SCH (06:12)
[2023-04-16 06:27] LABS: HEMOGLOBIN 15.6 gm/dl (13.7-17.5)
[2023-04-16] MEDS: Sodium Chloride 0.9% 1,000 ML IV SCH (07:28)
[2023-04-16] MEDS: Enoxaparin 40 MG/0.4 ML Syringe SUBCUT SCH (08:12)
[2023-04-16] MEDS: Nicotine 14 MG/24 Hr Patch TRDERM SCH (08:14)
[2023-04-16] MEDS: Thiamine 100 MG Tab PO SCH (08:15)
[2023-04-16] MEDS: Folic Acid 1 MG Tab PO SCH (08:15)
[2023-04-16] MEDS: fluvoxaMINE 50 MG Tab PO SCH (21:22)
[2023-04-16] MEDS: QUEtiapine 25 MG Tab PO SCH (21:23)
[2023-04-17] MEDS: LORazepam 2 MG/ML SDV IV SCH ×9 (01:35→23:55)
[2023-04-17] MEDS: Ondansetron 4 MG/2 ML SDV IV PRN ×2 (02:26→08:20)
[2023-04-17] MEDS: Pantoprazole 40 MG Tab.CR PO SCH (06:12)
[2023-04-17] MEDS: Folic Acid 1 MG Tab PO SCH (08:20)
[2023-04-17] MEDS: Topiramate 25 MG Tab PO SCH ×3 (08:20→20:02)
[2023-04-17] MEDS: Thiamine 100 MG Tab PO SCH (08:20)
[2023-04-17] MEDS: Nicotine 14 MG/24 Hr Patch TRDERM SCH (08:21)
[2023-04-17] MEDS: Enoxaparin 40 MG/0.4 ML Syringe SUBCUT SCH (08:21)
[2023-04-17] MEDS: LORazepam 1 MG Tab PO SCH (20:02)
[2023-04-17] MEDS: Ondansetron 4 MG Tab.DIS PO PRN (20:02)
[2023-04-17] MEDS: QUEtiapine 25 MG Tab PO SCH (20:02)
[2023-04-17] MEDS: fluvoxaMINE 50 MG Tab PO SCH (20:02)
[2023-04-18] MEDS: LORazepam 2 MG/ML SDV IV SCH ×5 (02:29→21:03)
[2023-04-18] MEDS: Pantoprazole 40 MG Tab.CR PO SCH (06:35)
[2023-04-18] MEDS: Nicotine 14 MG/24 Hr Patch TRDERM SCH (08:29)
[2023-04-18] MEDS: Topiramate 25 MG Tab PO SCH ×3 (08:31→21:02)
[2023-04-18] MEDS: Thiamine 100 MG Tab PO SCH (08:31)
[2023-04-18] MEDS: Enoxaparin 40 MG/0.4 ML Syringe SUBCUT SCH (08:31)
[2023-04-18] MEDS: Ondansetron 4 MG Tab.DIS PO PRN (18:55)
[2023-04-18] MEDS: fluvoxaMINE 50 MG Tab PO SCH (21:02)
[2023-04-18] MEDS: QUEtiapine 25 MG Tab PO SCH (21:03)
[2023-04-19] MEDS: Pantoprazole 40 MG Tab.CR PO SCH (05:04)
[2023-04-19] MEDS: Nicotine 14 MG/24 Hr Patch TRDERM SCH (08:31)
[2023-04-19] MEDS: Topiramate 25 MG Tab PO SCH ×3 (08:31→20:24)
[2023-04-19] MEDS: Thiamine 100 MG Tab PO SCH (08:31)
[2023-04-19] MEDS: Enoxaparin 40 MG/0.4 ML Syringe SUBCUT SCH (08:31)
[2023-04-19] MEDS: LORazepam 2 MG/ML SDV IV SCH ×3 (15:01→20:30)
[2023-04-19] MEDS: Ondansetron 4 MG Tab.DIS PO PRN (15:01)
[2023-04-19] MEDS: QUEtiapine 25 MG Tab PO SCH (20:23)
[2023-04-19] MEDS: fluvoxaMINE 50 MG Tab PO SCH (20:24)
[2023-04-19] MEDS: Ondansetron 4 MG/2 ML SDV IV PRN (20:29)
[2023-04-20] MEDS: Pantoprazole 40 MG Tab.CR PO SCH (05:20)
[2023-04-20] MEDS: LORazepam 1 MG Tab PO SCH (08:08)
[2023-04-20] MEDS: Thiamine 100 MG Tab PO SCH (08:08)
[2023-04-20] MEDS: Topiramate 25 MG Tab PO SCH (08:08)
[2023-04-20] MEDS: Nicotine 14 MG/24 Hr Patch TRDERM SCH (08:08)
[2023-04-20] MEDS: Enoxaparin 40 MG/0.4 ML Syringe SUBCUT SCH (08:08)
== END 2023-04-20 08:59 | disposition home or self-care (01) | DRG 897 ==
LOC: JD.ED 09:45 → JD.ICU 16:32
PROVIDERS: ADMIT Hospitalist; ATTEND Internal Medicine
DX: F10.239 Alcohol dependence with withdrawal, unspecified (principal); F31.60 Bipolar disorder, current episode mixed, unspecified; F10.229 Alcohol dependence with intoxication, unspecified; G40.909 Epilepsy, unspecified, not intractable, without status epilepticus; K70.10 Alcoholic hepatitis without ascites; E87.6 Hypokalemia; K29.20 Alcoholic gastritis without bleeding; K21.9 Gastro-esophageal reflux disease without esophagitis; F41.9 Anxiety disorder, unspecified; F42.2 Mixed obsessional thoughts and acts; F43.10 Post-traumatic stress disorder, unspecified; G47.00 Insomnia, unspecified; Z90.89 Acquired absence of other organs; Z98.890 Other specified postprocedural states; Z88.8 Allergy status to other drugs, medicaments and biological substances; Z88.0 Allergy status to penicillin
CPT/HCPCS: 36415; 80048; 80053; 80143; 80179; 80306; 80307; 83735; 84100; 84443; 85025; 93005; 93010; 94762; 96361; 96365; 96366; 96375; 99285; 99285-25; A9270-GY; J1650; J2060; J2405; J3475; J3480; J7030

== ENCOUNTER 2023-07-22 16:05 | Inpatient (IN) | payer MEDICAID, OTHER ==
[2023-07-22 17:30] LABS: BASOPHILS PERCENT AUTO 0.2 % (0.0-1.0); EOSINOPHILS PERCENT AUTO 0.1 % (0.0-6.0); HEMATOCRIT 51.7 % (42.0-52.0); HEMOGLOBIN 19.3 gm/dl (14.0-18.0); IMMATURE GRAN ABSOLUTE AUTO 0.09 K/mm3 (0.00-0.05); IMMATURE GRAN PERCENT AUTO 0.7 % (0.0-0.4); LYMPHOCYTES ABSOLUTE AUTO 1.3 K/mm3 (1.0-4.8); LYMPHOCYTES PERCENT AUTO 9.6 % (24.0-44.0); MEAN CORPUSCULAR HGB CONC 37.3 g/dl (32.0-36.0); MEAN CORPUSCULAR VOLUME 96.5 fl (83.0-99.0); MEAN PLATELET VOLUME 11.1 fl (9.4-12.4); MONOCYTES ABSOLUTE AUTO 1.3 K/mm3 (0.0-0.8); MONOCYTES PERCENT AUTO 9.2 % (0.0-8.0); NEUTROPHILS PERCENT AUTO 80.2 % (41.0-71.0); PLATELET COUNT,PLT 165 K/mm3 (150-400); RED BLOOD CELL COUNT 5.36 M/mm3 (4.52-5.90); WHITE BLOOD CELL COUNT,WBC 13.67 K/mm3 (3.9-11.3)
[2023-07-22 18:04] LABS: ALBUMIN 4.2 g/dl (3.4-5.0); ANION GAP 16.3 (5-15); BILIRUBIN TOTAL 2.5 mg/dL (0.2-1.0); BUN/CREATININE RATIO 14.3 (14-18); CALCIUM 9.9 mg/dL (8.5-10.1); CREATININE 0.7 mg/dL (0.7-1.3); EST CRCL DRUG DOSING (CG) 172.44 mL/min; PROTEIN TOTAL,TP 8.3 g/dl (6.4-8.2); TSH 1.323 uIU/mL (0.358-3.74)
[2023-07-22 18:10] LABS: POTASSIUM,K 3.3 mEq/L (3.5-5.1)
[2023-07-22] MEDS ORDERED: Potassium Chloride 20 MEQ Tab.ER PO ONE (18:18)
[2023-07-22] MEDS ORDERED: Ondansetron 4 MG Tab.DIS PO PRN (18:53)
[2023-07-22] MEDS ORDERED: Folic Acid 1 MG Tab PO ONE (18:58)
[2023-07-22] MEDS ORDERED: Heparin Sodium 5,000 Units/ML Vial SUBCUT SCH (19:00)
[2023-07-22 20:41] LABS: BARBITURATE SCREEN,URINE NEGATIVE (CUTOFF=200); BENZODIAZEPINES SCREEN,URINE NEGATIVE (CUTOFF=150); BUPRENORPHINE SCREEN,URINE NEGATIVE (CUTOFF=10); METHADONE SCREEN, URINE NEGATIVE (CUT0FF=200); METHAMPHETAMINES SCREEN, URINE NEGATIVE (CUTOFF=500); OXYCODONE SCREEN,URINE NEGATIVE (CUT0FF=100); PROPOXYPHENE SCREEN,URINE NEGATIVE (CUTOFF=300); THC SCREEN,URINE 20 NG/ML PRESUMPTIVE POSITIVE (CUTOFF=50)
[2023-07-22 20:45] LABS: AMPHETAMINES SCREEN, URINE NEGATIVE (CUTOFF=500)
[2023-07-22] MEDS: Sodium Chloride 0.9% 1,000 ML IV SCH (21:24)
[2023-07-22] MEDS: Thiamine 100 MG Tab PO SCH (21:27)
[2023-07-22] MEDS ORDERED: Folic Acid 1 MG Tab ONE (21:32)
[2023-07-22] MEDS ORDERED: Potassium Chloride 20 MEQ Tab.ER ONE (21:32)
[2023-07-23] MEDS: Sodium Chloride 0.9% 1,000 ML IV SCH ×4 (03:48→23:10)
[2023-07-23] MEDS: Heparin Sodium 5,000 Units/ML Vial SUBCUT SCH ×3 (05:10→20:58)
[2023-07-23 05:37] LABS: BASOPHILS PERCENT AUTO 0.4 % (0.0-1.0); EOSINOPHILS ABSOLUTE AUTO 0.1 K/mm3 (0.0-0.4); EOSINOPHILS PERCENT AUTO 0.8 % (0.0-6.0); HEMOGLOBIN 16.4 gm/dl (14.0-18.0); IMMATURE GRAN ABSOLUTE AUTO 0.04 K/mm3 (0.00-0.05); IMMATURE GRAN PERCENT AUTO 0.5 % (0.0-0.4); LYMPHOCYTES ABSOLUTE AUTO 1.5 K/mm3 (1.0-4.8); LYMPHOCYTES PERCENT AUTO 19.4 % (24.0-44.0); MEAN CORPUSCULAR HEMOGLOBIN 35.5 pg (28.0-32.0); MEAN CORPUSCULAR HGB CONC 36.4 g/dl (32.0-36.0); MEAN CORPUSCULAR VOLUME 97.4 fl (83.0-99.0); MEAN PLATELET VOLUME 10.7 fl (9.4-12.4); MONOCYTES PERCENT AUTO 12.6 % (0.0-8.0); NEUTROPHILS PERCENT AUTO 66.3 % (41.0-71.0); PLATELET COUNT,PLT 126 K/mm3 (150-400); RED BLOOD CELL COUNT 4.62 M/mm3 (4.52-5.90); WHITE BLOOD CELL COUNT,WBC 7.54 K/mm3 (3.9-11.3)
[2023-07-23 05:44] LABS: ALBUMIN 3.2 g/dl (3.4-5.0); ANION GAP 12.2 (5-15); BILIRUBIN TOTAL 2.1 mg/dL (0.2-1.0); BUN/CREATININE RATIO 12.5 (14-18); CALCIUM 8.8 mg/dL (8.5-10.1); CREATININE 0.8 mg/dL (0.7-1.3); EST CRCL DRUG DOSING (CG) 150.89 mL/min; POTASSIUM,K 3.2 mEq/L (3.5-5.1); PROTEIN TOTAL,TP 6.5 g/dl (6.4-8.2)
[2023-07-23] MEDS ORDERED: LORazepam 2 MG/ML SDV IVPUSH PRN (07:43)
[2023-07-23] MEDS: Diphenhydramine/Lidocaine/MagAl/Simethicone 119 ML Bottle PO PRN ×2 (08:26→10:19)
[2023-07-23] MEDS ORDERED: Potassium Bicarbonate/Cit Ac 20 MEQ Effervescent Tab PO ONE (13:00)
[2023-07-23] MEDS: Thiamine 100 MG Tab PO SCH (20:58)
[2023-07-24] MEDS: Heparin Sodium 5,000 Units/ML Vial SUBCUT SCH ×3 (04:54→20:53)
[2023-07-24 05:32] LABS: BASOPHILS PERCENT AUTO 0.9 % (0.0-1.0); EOSINOPHILS ABSOLUTE AUTO 0.1 K/mm3 (0.0-0.4); EOSINOPHILS PERCENT AUTO 2.4 % (0.0-6.0); HEMATOCRIT 42.4 % (42.0-52.0); HEMOGLOBIN 14.8 gm/dl (14.0-18.0); IMMATURE GRAN ABSOLUTE AUTO 0.02 K/mm3 (0.00-0.05); IMMATURE GRAN PERCENT AUTO 0.4 % (0.0-0.4); LYMPHOCYTES ABSOLUTE AUTO 1.5 K/mm3 (1.0-4.8); LYMPHOCYTES PERCENT AUTO 33.2 % (24.0-44.0); MEAN CORPUSCULAR HGB CONC 34.9 g/dl (32.0-36.0); MEAN CORPUSCULAR VOLUME 100.2 fl (83.0-99.0); MEAN PLATELET VOLUME 10.5 fl (9.4-12.4); MONOCYTES ABSOLUTE AUTO 0.6 K/mm3 (0.0-0.8); MONOCYTES PERCENT AUTO 12.8 % (0.0-8.0); NEUTROPHILS ABSOLUTE AUTO 2.3 K/mm3 (1.8-7.7); NEUTROPHILS PERCENT AUTO 50.3 % (41.0-71.0); PLATELET COUNT,PLT 103 K/mm3 (150-400); RED BLOOD CELL COUNT 4.23 M/mm3 (4.52-5.90); WHITE BLOOD CELL COUNT,WBC 4.61 K/mm3 (3.9-11.3)
[2023-07-24] MEDS: Sodium Chloride 0.9% 1,000 ML IV SCH ×2 (05:33→16:42)
[2023-07-24 05:40] LABS: A/G RATIO 0.9 (1-2); ALBUMIN 2.7 g/dl (3.4-5.0); ANION GAP 9.5 (5-15); BUN/CREATININE RATIO 11.4 (14-18); CALCIUM 8.1 mg/dL (8.5-10.1); CREATININE 0.7 mg/dL (0.7-1.3); EST CRCL DRUG DOSING (CG) 172.44 mL/min; POTASSIUM,K 3.5 mEq/L (3.5-5.1); PROTEIN TOTAL,TP 5.7 g/dl (6.4-8.2)
[2023-07-24] MEDS: Diphenhydramine/Lidocaine/MagAl/Simethicone 119 ML Bottle PO PRN ×2 (15:44→20:55)
[2023-07-24] MEDS: Thiamine 100 MG Tab PO SCH (20:53)
[2023-07-25] MEDS ORDERED: Acetaminophen 325 MG Tab PO PRN (04:22)
[2023-07-25] MEDS: Heparin Sodium 5,000 Units/ML Vial SUBCUT SCH ×3 (04:38→20:15)
[2023-07-25 05:51] LABS: BASOPHILS ABSOLUTE AUTO 0.1 K/mm3 (0.0-0.2); BASOPHILS PERCENT AUTO 0.8 % (0.0-1.0); EOSINOPHILS ABSOLUTE AUTO 0.1 K/mm3 (0.0-0.4); EOSINOPHILS PERCENT AUTO 1.3 % (0.0-6.0); HEMATOCRIT 43.4 % (42.0-52.0); HEMOGLOBIN 15.4 gm/dl (14.0-18.0); IMMATURE GRAN ABSOLUTE AUTO 0.02 K/mm3 (0.00-0.05); IMMATURE GRAN PERCENT AUTO 0.3 % (0.0-0.4); LYMPHOCYTES ABSOLUTE AUTO 1.6 K/mm3 (1.0-4.8); LYMPHOCYTES PERCENT AUTO 25.9 % (24.0-44.0); MEAN CORPUSCULAR HEMOGLOBIN 35.7 pg (28.0-32.0); MEAN CORPUSCULAR HGB CONC 35.5 g/dl (32.0-36.0); MEAN CORPUSCULAR VOLUME 100.7 fl (83.0-99.0); MEAN PLATELET VOLUME 10.5 fl (9.4-12.4); MONOCYTES ABSOLUTE AUTO 0.8 K/mm3 (0.0-0.8); NEUTROPHILS ABSOLUTE AUTO 3.6 K/mm3 (1.8-7.7); NEUTROPHILS PERCENT AUTO 58.7 % (41.0-71.0); PLATELET COUNT,PLT 134 K/mm3 (150-400); RED BLOOD CELL COUNT 4.31 M/mm3 (4.52-5.90); WHITE BLOOD CELL COUNT,WBC 6.07 K/mm3 (3.9-11.3)
[2023-07-25 06:12] LABS: ANION GAP 11.4 (5-15); BUN/CREATININE RATIO 8.6 (14-18); CALCIUM 8.6 mg/dL (8.5-10.1); CREATININE 0.7 mg/dL (0.7-1.3); EST CRCL DRUG DOSING (CG) 172.44 mL/min; POTASSIUM,K 3.4 mEq/L (3.5-5.1)
[2023-07-25] MEDS: Sodium Chloride 0.9% 1,000 ML IV SCH ×2 (06:14→19:37)
[2023-07-25] MEDS: Thiamine 100 MG Tab PO SCH (20:15)
[2023-07-26] MEDS: Heparin Sodium 5,000 Units/ML Vial SUBCUT SCH (04:57)
[2023-07-26 05:42] LABS: BASOPHILS ABSOLUTE AUTO 0.1 K/mm3 (0.0-0.2); BASOPHILS PERCENT AUTO 0.9 % (0.0-1.0); EOSINOPHILS ABSOLUTE AUTO 0.2 K/mm3 (0.0-0.4); EOSINOPHILS PERCENT AUTO 3.1 % (0.0-6.0); HEMATOCRIT 42.6 % (42.0-52.0); HEMOGLOBIN 15.2 gm/dl (14.0-18.0); IMMATURE GRAN ABSOLUTE AUTO 0.02 K/mm3 (0.00-0.05); IMMATURE GRAN PERCENT AUTO 0.4 % (0.0-0.4); LYMPHOCYTES ABSOLUTE AUTO 1.9 K/mm3 (1.0-4.8); LYMPHOCYTES PERCENT AUTO 33.3 % (24.0-44.0); MEAN CORPUSCULAR HEMOGLOBIN 36.2 pg (28.0-32.0); MEAN CORPUSCULAR HGB CONC 35.7 g/dl (32.0-36.0); MEAN CORPUSCULAR VOLUME 101.4 fl (83.0-99.0); MEAN PLATELET VOLUME 10.4 fl (9.4-12.4); MONOCYTES ABSOLUTE AUTO 0.8 K/mm3 (0.0-0.8); MONOCYTES PERCENT AUTO 14.1 % (0.0-8.0); NEUTROPHILS ABSOLUTE AUTO 2.7 K/mm3 (1.8-7.7); NEUTROPHILS PERCENT AUTO 48.2 % (41.0-71.0); PLATELET COUNT,PLT 155 K/mm3 (150-400); WHITE BLOOD CELL COUNT,WBC 5.55 K/mm3 (3.9-11.3)
[2023-07-26 05:49] LABS: ANION GAP 7.2 (5-15); CALCIUM 8.3 mg/dL (8.5-10.1); CREATININE 0.8 mg/dL (0.7-1.3); EST CRCL DRUG DOSING (CG) 150.89 mL/min; POTASSIUM,K 3.2 mEq/L (3.5-5.1)
[2023-07-26] MEDS ORDERED: Potassium Chloride 20 MEQ Tab.ER PO ONE (07:41)
== END 2023-07-26 11:38 | disposition home or self-care (01) | DRG 897 ==
LOC: JD.ED 16:05 → JD.ICU 18:53
PROVIDERS: ADMIT Internal Medicine; ATTEND Internal Medicine
DX: F10.131 Alcohol abuse with withdrawal delirium (principal); F12.10 Cannabis abuse, uncomplicated; R56.9 Unspecified convulsions; K21.9 Gastro-esophageal reflux disease without esophagitis; F41.9 Anxiety disorder, unspecified; F17.210 Nicotine dependence, cigarettes, uncomplicated; R79.89 Other specified abnormal findings of blood chemistry; Z88.0 Allergy status to penicillin; Z88.8 Allergy status to other drugs, medicaments and biological substances; Z79.899 Other long term (current) drug therapy; Z90.89 Acquired absence of other organs; Z98.890 Other specified postprocedural states
CPT/HCPCS: 36415; 80048; 80053; 80143; 80179; 80306; 80307; 84443; 85025; 93010; 99284; 99285; A9270-GY; J1644; J3490; J7030

== ENCOUNTER 2024-02-29 19:31 | Emergency (ER) | payer SELFPAY ==
[2024-02-29 20:23] LABS: BASOPHILS ABSOLUTE AUTO 0.1 K/mm3 (0.0-0.2); BASOPHILS PERCENT AUTO 0.7 % (0.0-1.0); EOSINOPHILS PERCENT AUTO 0.5 % (0.0-6.0); HEMATOCRIT 46.9 % (42.0-52.0); HEMOGLOBIN 16.8 gm/dl (14.0-18.0); IMMATURE GRAN ABSOLUTE AUTO 0.02 K/mm3 (0.00-0.05); IMMATURE GRAN PERCENT AUTO 0.2 % (0.0-0.4); LYMPHOCYTES ABSOLUTE AUTO 2.9 K/mm3 (1.0-4.8); LYMPHOCYTES PERCENT AUTO 33.8 % (24.0-44.0); MEAN CORPUSCULAR HEMOGLOBIN 33.7 pg (28.0-32.0); MEAN CORPUSCULAR HGB CONC 35.8 g/dl (32.0-36.0); MEAN CORPUSCULAR VOLUME 94.2 fl (83.0-99.0); MEAN PLATELET VOLUME 10.2 fl (9.4-12.4); MONOCYTES ABSOLUTE AUTO 0.7 K/mm3 (0.0-0.8); MONOCYTES PERCENT AUTO 8.1 % (0.0-8.0); NEUTROPHILS ABSOLUTE AUTO 4.8 K/mm3 (1.8-7.7); NEUTROPHILS PERCENT AUTO 56.7 % (41.0-71.0); PLATELET COUNT,PLT 249 K/mm3 (150-400); RED BLOOD CELL COUNT 4.98 M/mm3 (4.52-5.90); WHITE BLOOD CELL COUNT,WBC 8.47 K/mm3 (3.9-11.3)
[2024-02-29 20:54] LABS: A/G RATIO 1.3 (1-2); ALBUMIN 4.3 g/dl (3.4-5.0); ANION GAP 14.7 (5-15); BILIRUBIN TOTAL 0.7 mg/dL (0.2-1.0); CALCIUM 8.8 mg/dL (8.5-10.1); EST CRCL DRUG DOSING (CG) 120.71 mL/min; ETHANOL BLOOD MEDICAL 0.31 gm% (0.00); POTASSIUM,K 3.7 mEq/L (3.5-5.1); PROTEIN TOTAL,TP 7.7 g/dl (6.4-8.2); TSH 2.512 uIU/mL (0.358-3.74)
[2024-02-29] MEDS: Sodium Chloride 0.9% 1,000 ML IV SCH (22:01)
[2024-02-29] MEDS: Ondansetron 4 MG/2 ML SDV IVPUSH ONE (22:08)
[2024-03-01 00:46] LABS: BARBITURATE SCREEN,URINE NEGATIVE (CUTOFF=200); BENZODIAZEPINES SCREEN,URINE NEGATIVE (CUTOFF=150); BUPRENORPHINE SCREEN,URINE NEGATIVE (CUTOFF=10); METHADONE SCREEN, URINE NEGATIVE (CUT0FF=200); METHAMPHETAMINES SCREEN, URINE NEGATIVE (CUTOFF=500); OXYCODONE SCREEN,URINE NEGATIVE (CUT0FF=100); THC SCREEN,URINE 20 NG/ML NEGATIVE (CUTOFF=50)
[2024-03-01 00:47] LABS: AMPHETAMINES SCREEN, URINE NEGATIVE (CUTOFF=500)
[2024-03-01] MEDS: LORazepam 2 MG/ML SDV IVPUSH ONE (04:19)
[2024-03-01] MEDS: Ondansetron 4 MG/2 ML SDV IVPUSH ONE (06:26)
== END 2024-03-01 06:32 ==
LOC: JD.ED 19:31
DX: F10.229 Alcohol dependence with intoxication, unspecified (principal); F17.210 Nicotine dependence, cigarettes, uncomplicated; Z88.0 Allergy status to penicillin; Y90.7 Blood alcohol level of 200-239 mg/100 ml; Z88.1 Allergy status to other antibiotic agents; Z79.899 Other long term (current) drug therapy
CPT/HCPCS: 36415; 80053; 80143; 80179; 80306; 80307; 84443; 85025; 96361; 96374; 96375; 96376; 99284; 99284-25; J2060; J2405; J7030

== ENCOUNTER 2024-03-01 15:38 | Inpatient (IN) | payer SELFPAY ==
[2024-03-01] MEDS: Sodium Chloride 0.9% 1,000 ML IV ONE (16:49)
[2024-03-01] MEDS: Ondansetron 4 MG/2 ML SDV IVPUSH ONE (16:52)
[2024-03-01] MEDS: LORazepam 2 MG/ML SDV IVPUSH ONE (16:53)
[2024-03-01 16:54] LABS: BASOPHILS PERCENT AUTO 0.4 % (0.0-1.0); EOSINOPHILS PERCENT AUTO 0.5 % (0.0-6.0); HEMOGLOBIN 14.9 gm/dl (14.0-18.0); IMMATURE GRAN ABSOLUTE AUTO 0.02 K/mm3 (0.00-0.05); IMMATURE GRAN PERCENT AUTO 0.2 % (0.0-0.4); LYMPHOCYTES ABSOLUTE AUTO 1.4 K/mm3 (1.0-4.8); LYMPHOCYTES PERCENT AUTO 16.6 % (24.0-44.0); MEAN CORPUSCULAR HEMOGLOBIN 33.6 pg (28.0-32.0); MEAN CORPUSCULAR HGB CONC 35.5 g/dl (32.0-36.0); MEAN CORPUSCULAR VOLUME 94.8 fl (83.0-99.0); MEAN PLATELET VOLUME 9.8 fl (9.4-12.4); MONOCYTES ABSOLUTE AUTO 0.6 K/mm3 (0.0-0.8); MONOCYTES PERCENT AUTO 7.6 % (0.0-8.0); NEUTROPHILS ABSOLUTE AUTO 6.2 K/mm3 (1.8-7.7); NEUTROPHILS PERCENT AUTO 74.7 % (41.0-71.0); PLATELET COUNT,PLT 200 K/mm3 (150-400); RED BLOOD CELL COUNT 4.43 M/mm3 (4.52-5.90); WHITE BLOOD CELL COUNT,WBC 8.29 K/mm3 (3.9-11.3)
[2024-03-01 17:13] LABS: A/G RATIO 1.3 (1-2); ANION GAP 17.3 (5-15); BILIRUBIN TOTAL 1.6 mg/dL (0.2-1.0); BUN/CREATININE RATIO 6.7 (14-18); CALCIUM 8.7 mg/dL (8.5-10.1); CREATININE 0.9 mg/dL (0.7-1.3); EST CRCL DRUG DOSING (CG) 134.12 mL/min; POTASSIUM,K 3.3 mEq/L (3.5-5.1)
[2024-03-01] MEDS ORDERED: LORazepam 2 MG/ML SDV IVPUSH PRN (18:20)
[2024-03-01] MEDS: Sodium Chloride 0.9% 1,000 ML IV SCH (18:53)
[2024-03-01] MEDS: Magnesium Sulfate/Water 2 GM in Premix Bag 1 BAG IV ONE (18:55)
[2024-03-01] MEDS: Thiamine 100 MG Tab PO ONE (19:01)
[2024-03-01] MEDS: Folic Acid 1 MG Tab PO ONE (19:01)
[2024-03-01] MEDS: Heparin Sodium 5,000 Units/ML Vial SUBCUT SCH (19:01)
[2024-03-01] MEDS: Potassium Chloride 20 MEQ Tab.ER PO ONE (19:01)
[2024-03-01 19:21] LABS: AMPHETAMINES SCREEN, URINE NEGATIVE (CUTOFF=500); BARBITURATE SCREEN,URINE NEGATIVE (CUTOFF=200); BENZODIAZEPINES SCREEN,URINE PRESUMPTIVE POSITIVE (CUTOFF=150); BUPRENORPHINE SCREEN,URINE NEGATIVE (CUTOFF=10); METHADONE SCREEN, URINE NEGATIVE (CUT0FF=200); METHAMPHETAMINES SCREEN, URINE NEGATIVE (CUTOFF=500); OXYCODONE SCREEN,URINE NEGATIVE (CUT0FF=100); THC SCREEN,URINE 20 NG/ML NEGATIVE (CUTOFF=50)
[2024-03-01] MEDS: Nicotine 14 MG/24 Hr Patch TRDERM SCH (20:26)
[2024-03-02] MEDS: Ondansetron 4 MG Tab.DIS PO PRN (03:01)
[2024-03-02 05:45] LABS: BASOPHILS PERCENT AUTO 0.6 % (0.0-1.0); EOSINOPHILS ABSOLUTE AUTO 0.2 K/mm3 (0.0-0.4); EOSINOPHILS PERCENT AUTO 3.2 % (0.0-6.0); HEMATOCRIT 38.5 % (42.0-52.0); HEMOGLOBIN 13.6 gm/dl (14.0-18.0); IMMATURE GRAN ABSOLUTE AUTO 0.03 K/mm3 (0.00-0.05); IMMATURE GRAN PERCENT AUTO 0.6 % (0.0-0.4); LYMPHOCYTES ABSOLUTE AUTO 1.3 K/mm3 (1.0-4.8); LYMPHOCYTES PERCENT AUTO 27.1 % (24.0-44.0); MEAN CORPUSCULAR HEMOGLOBIN 33.7 pg (28.0-32.0); MEAN CORPUSCULAR HGB CONC 35.3 g/dl (32.0-36.0); MEAN CORPUSCULAR VOLUME 95.3 fl (83.0-99.0); MEAN PLATELET VOLUME 10.7 fl (9.4-12.4); MONOCYTES ABSOLUTE AUTO 0.5 K/mm3 (0.0-0.8); MONOCYTES PERCENT AUTO 9.6 % (0.0-8.0); NEUTROPHILS ABSOLUTE AUTO 2.8 K/mm3 (1.8-7.7); NEUTROPHILS PERCENT AUTO 58.9 % (41.0-71.0); PLATELET COUNT,PLT 150 K/mm3 (150-400); RED BLOOD CELL COUNT 4.04 M/mm3 (4.52-5.90); WHITE BLOOD CELL COUNT,WBC 4.68 K/mm3 (3.9-11.3)
[2024-03-02 06:06] LABS: A/G RATIO 1.2 (1-2); ALBUMIN 3.1 g/dl (3.4-5.0); BILIRUBIN TOTAL 1.7 mg/dL (0.2-1.0); BUN/CREATININE RATIO 7.5 (14-18); CALCIUM 8.4 mg/dL (8.5-10.1); CREATININE 0.8 mg/dL (0.7-1.3); EST CRCL DRUG DOSING (CG) 150.89 mL/min; PROTEIN TOTAL,TP 5.7 g/dl (6.4-8.2)
[2024-03-02] MEDS: Thiamine 100 MG Tab PO SCH (21:10)
[2024-03-02] MEDS: Folic Acid 1 MG Tab PO SCH (21:10)
[2024-03-03 05:26] LABS: ANION GAP 10.1 (5-15); BUN/CREATININE RATIO 6.3 (14-18); CREATININE 0.8 mg/dL (0.7-1.3); EST CRCL DRUG DOSING (CG) 150.89 mL/min; MAGNESIUM 1.8 mg/dL (1.8-2.4); POTASSIUM,K 4.1 mEq/L (3.5-5.1)
[2024-03-03 05:35] LABS: BASOPHILS PERCENT AUTO 0.4 % (0.0-1.0); EOSINOPHILS ABSOLUTE AUTO 0.2 K/mm3 (0.0-0.4); EOSINOPHILS PERCENT AUTO 4.3 % (0.0-6.0); HEMATOCRIT 39.9 % (42.0-52.0); IMMATURE GRAN ABSOLUTE AUTO 0.02 K/mm3 (0.00-0.05); IMMATURE GRAN PERCENT AUTO 0.4 % (0.0-0.4); LYMPHOCYTES ABSOLUTE AUTO 1.5 K/mm3 (1.0-4.8); LYMPHOCYTES PERCENT AUTO 31.7 % (24.0-44.0); MEAN CORPUSCULAR HEMOGLOBIN 33.7 pg (28.0-32.0); MEAN CORPUSCULAR HGB CONC 35.1 g/dl (32.0-36.0); MEAN CORPUSCULAR VOLUME 95.9 fl (83.0-99.0); MEAN PLATELET VOLUME 10.8 fl (9.4-12.4); MONOCYTES ABSOLUTE AUTO 0.4 K/mm3 (0.0-0.8); MONOCYTES PERCENT AUTO 8.9 % (0.0-8.0); NEUTROPHILS ABSOLUTE AUTO 2.6 K/mm3 (1.8-7.7); NEUTROPHILS PERCENT AUTO 54.3 % (41.0-71.0); PLATELET COUNT,PLT 142 K/mm3 (150-400); RED BLOOD CELL COUNT 4.16 M/mm3 (4.52-5.90)
== END 2024-03-03 10:10 | DRG 897 ==
LOC: JD.ED 15:38 → JD.ICU 18:10
PROVIDERS: ADMIT Internal Medicine; ATTEND Internal Medicine
DX: F10.230 Alcohol dependence with withdrawal, uncomplicated (principal); F17.210 Nicotine dependence, cigarettes, uncomplicated; K21.9 Gastro-esophageal reflux disease without esophagitis; F41.9 Anxiety disorder, unspecified; E87.6 Hypokalemia; R56.9 Unspecified convulsions; R79.89 Other specified abnormal findings of blood chemistry; Z88.0 Allergy status to penicillin; Z88.8 Allergy status to other drugs, medicaments and biological substances; Z79.899 Other long term (current) drug therapy; Z91.51 Personal history of suicidal behavior; Z90.89 Acquired absence of other organs; Z98.890 Other specified postprocedural states
CPT/HCPCS: 36415; 80048; 80053; 80306; 80307; 83690; 83735; 85025; 93005; A9270-GY; J1644; J2060; J2405; J3475; J7030

== ENCOUNTER 2024-05-01 15:21 | Inpatient (IN) | payer SELFPAY ==
[2024-05-01] MEDS: Sodium Chloride 0.9% 1,000 ML IV ONE (17:38)
[2024-05-01] MEDS: Ondansetron 4 MG/2 ML SDV IVPUSH ONE (17:38)
[2024-05-01] MEDS: LORazepam 2 MG/ML SDV IV ONE (17:39)
[2024-05-01 17:43] LABS: BASOPHILS PERCENT AUTO 0.8 % (0.0-1.0); EOSINOPHILS PERCENT AUTO 0.6 % (0.0-6.0); HEMOGLOBIN 17.9 gm/dl (14.0-18.0); IMMATURE GRAN ABSOLUTE AUTO 0.01 K/mm3 (0.00-0.05); IMMATURE GRAN PERCENT AUTO 0.2 % (0.0-0.4); LYMPHOCYTES ABSOLUTE AUTO 1.2 K/mm3 (1.0-4.8); LYMPHOCYTES PERCENT AUTO 24.9 % (24.0-44.0); MEAN CORPUSCULAR HEMOGLOBIN 35.5 pg (28.0-32.0); MEAN CORPUSCULAR HGB CONC 35.8 g/dl (32.0-36.0); MEAN CORPUSCULAR VOLUME 99.2 fl (83.0-99.0); MEAN PLATELET VOLUME 10.1 fl (9.4-12.4); MONOCYTES ABSOLUTE AUTO 0.5 K/mm3 (0.0-0.8); MONOCYTES PERCENT AUTO 10.7 % (0.0-8.0); NEUTROPHILS ABSOLUTE AUTO 3.1 K/mm3 (1.8-7.7); NEUTROPHILS PERCENT AUTO 62.8 % (41.0-71.0); PLATELET COUNT,PLT 128 K/mm3 (150-400); RED BLOOD CELL COUNT 5.04 M/mm3 (4.52-5.90); WHITE BLOOD CELL COUNT,WBC 4.86 K/mm3 (3.9-11.3)
[2024-05-01 18:41] LABS: A/G RATIO 1.2 (1-2); ALBUMIN 3.7 g/dl (3.4-5.0); ANION GAP 14.8 (5-15); BILIRUBIN TOTAL 0.8 mg/dL (0.2-1.0); CALCIUM 8.2 mg/dL (8.5-10.1); CREATININE 0.6 mg/dL (0.7-1.3); EST CRCL DRUG DOSING (CG) 201.19 mL/min; ETHANOL BLOOD MEDICAL 0.37 gm% (0.00); MAGNESIUM 2.1 mg/dL (1.8-2.4); PROTEIN TOTAL,TP 6.8 g/dl (6.4-8.2)
[2024-05-01 18:46] LABS: POTASSIUM,K 3.8 mEq/L (3.5-5.1)
[2024-05-01 21:06] LABS: BENZODIAZEPINES SCREEN,URINE PRESUMPTIVE POSITIVE (CUTOFF=150); BUPRENORPHINE SCREEN,URINE NEGATIVE (CUTOFF=10); METHADONE SCREEN, URINE NEGATIVE (CUT0FF=200); OXYCODONE SCREEN,URINE NEGATIVE (CUT0FF=100); THC SCREEN,URINE 20 NG/ML PRESUMPTIVE POSITIVE (CUTOFF=50)
[2024-05-01 21:07] LABS: AMPHETAMINES SCREEN, URINE NEGATIVE (CUTOFF=500); BARBITURATE SCREEN,URINE NEGATIVE (CUTOFF=200); METHAMPHETAMINES SCREEN, URINE NEGATIVE (CUTOFF=500)
[2024-05-01] MEDS: Thiamine 200 MG/2 ML MDV IVPUSH SCH (21:24)
[2024-05-01] MEDS: LORazepam 2 MG/ML SDV IVPUSH ONE (21:24)
[2024-05-02] MEDS: LORazepam 2 MG/ML SDV IV PRN (01:34)
[2024-05-02] MEDS: Acetaminophen Soln 650 MG/20.3 ML UD Cup PO PRN (09:26)
[2024-05-02] MEDS: Ondansetron 4 MG/2 ML SDV IVPUSH PRN (09:27)
[2024-05-02] MEDS ORDERED: Docusate Sodium 100 MG Cap PO PRN (09:35)
[2024-05-02] MEDS: Thiamine 100 MG Tab PO SCH (11:40)
[2024-05-02] MEDS: Pantoprazole 40 MG Tab.CR PO SCH (11:41)
[2024-05-02] MEDS: chlordiazePOXIDE 25 MG Cap PO SCH ×2 (11:42→15:01)
[2024-05-02] MEDS: Folic Acid 1 MG Tab PO SCH (11:42)
[2024-05-02] MEDS: LORazepam 2 MG/ML SDV IVPUSH PRN (12:28)
[2024-05-02] MEDS: Ondansetron 4 MG Tab.DIS PO PRN (18:27)
[2024-05-02] MEDS: Nicotine 21 MG/24 Hr Patch TRDERM SCH (18:30)
[2024-05-03 06:17] LABS: BASOPHILS PERCENT AUTO 0.8 % (0.0-1.0); EOSINOPHILS ABSOLUTE AUTO 0.2 K/mm3 (0.0-0.4); EOSINOPHILS PERCENT AUTO 3.5 % (0.0-6.0); HEMATOCRIT 46.6 % (42.0-52.0); HEMOGLOBIN 16.7 gm/dl (14.0-18.0); IMMATURE GRAN ABSOLUTE AUTO 0.02 K/mm3 (0.00-0.05); IMMATURE GRAN PERCENT AUTO 0.4 % (0.0-0.4); LYMPHOCYTES ABSOLUTE AUTO 1.1 K/mm3 (1.0-4.8); LYMPHOCYTES PERCENT AUTO 22.3 % (24.0-44.0); MEAN CORPUSCULAR HGB CONC 35.8 g/dl (32.0-36.0); MEAN CORPUSCULAR VOLUME 100.4 fl (83.0-99.0); MEAN PLATELET VOLUME 10.5 fl (9.4-12.4); MONOCYTES ABSOLUTE AUTO 0.5 K/mm3 (0.0-0.8); MONOCYTES PERCENT AUTO 11.3 % (0.0-8.0); NEUTROPHILS PERCENT AUTO 61.7 % (41.0-71.0); PLATELET COUNT,PLT 105 K/mm3 (150-400); RED BLOOD CELL COUNT 4.64 M/mm3 (4.52-5.90)
[2024-05-03 06:36] LABS: ANION GAP 11.1 (5-15); CALCIUM 8.4 mg/dL (8.5-10.1); CREATININE 0.8 mg/dL (0.7-1.3); EST CRCL DRUG DOSING (CG) 150.89 mL/min; MAGNESIUM 1.7 mg/dL (1.8-2.4); PHOSPHORUS 2.5 mg/dL (2.6-4.7); POTASSIUM,K 3.1 mEq/L (3.5-5.1)
[2024-05-03] MEDS: Sodium Chloride 0.9% 1,000 ML IV SCH (08:27)
[2024-05-03] MEDS ORDERED: Potassium Chloride 20 MEQ Tab.ER PO ONE (09:20)
[2024-05-03] MEDS: NS + KCl 20mEq/L 1,000 ML IV SCH (09:48)
[2024-05-03] MEDS: Potassium Chloride 20 MEQ Tab.ER PO ONE ×2 (09:48→20:31)
[2024-05-03] MEDS: Magnesium Sulfate/Water 4 GM in Premix Bag 1 BAG IV ONE (09:48)
[2024-05-03] MEDS: Sodium Phosphate 30 MMOLE in Sodium Chloride 0.9% 250 ML IV ONE (11:34)
[2024-05-03] MEDS: LORazepam 2 MG/ML SDV IVPUSH PRN ×2 (15:11→21:42)
[2024-05-03] MEDS: Acetaminophen 325 MG Tab PO PRN (15:19)
[2024-05-04 04:48] LABS: BASOPHILS PERCENT AUTO 0.5 % (0.0-1.0); EOSINOPHILS PERCENT AUTO 4.6 % (0.0-6.0); HEMATOCRIT 46.6 % (42.0-52.0); HEMOGLOBIN 16.5 gm/dl (14.0-18.0); IMMATURE GRAN PERCENT AUTO 0.5 % (0.0-0.4); LYMPHOCYTES PERCENT AUTO 28.1 % (24.0-44.0); MEAN CORPUSCULAR HEMOGLOBIN 35.4 pg (28.0-32.0); MEAN CORPUSCULAR HGB CONC 35.4 g/dl (32.0-36.0); MEAN PLATELET VOLUME 11.2 fl (9.4-12.4); MONOCYTES PERCENT AUTO 9.9 % (0.0-8.0); NEUTROPHILS PERCENT AUTO 56.4 % (41.0-71.0); PLATELET COUNT,PLT 108 K/mm3 (150-400); RED BLOOD CELL COUNT 4.66 M/mm3 (4.52-5.90); WHITE BLOOD CELL COUNT,WBC 5.48 K/mm3 (3.9-11.3)
[2024-05-04 04:49] LABS: EOSINOPHILS ABSOLUTE AUTO 0.3 K/mm3 (0.0-0.4); IMMATURE GRAN ABSOLUTE AUTO 0.03 K/mm3 (0.00-0.05); LYMPHOCYTES ABSOLUTE AUTO 1.5 K/mm3 (1.0-4.8); MONOCYTES ABSOLUTE AUTO 0.5 K/mm3 (0.0-0.8); NEUTROPHILS ABSOLUTE AUTO 3.1 K/mm3 (1.8-7.7)
[2024-05-04 05:20] LABS: ALBUMIN 3.1 g/dl (3.4-5.0); ANION GAP 10.6 (5-15); BUN/CREATININE RATIO 8.6 (14-18); CALCIUM 8.5 mg/dL (8.5-10.1); CREATININE 0.7 mg/dL (0.7-1.3); EST CRCL DRUG DOSING (CG) 172.44 mL/min; MAGNESIUM 2.1 mg/dL (1.8-2.4); PHOSPHORUS 2.6 mg/dL (2.6-4.7); POTASSIUM,K 3.6 mEq/L (3.5-5.1); PROTEIN TOTAL,TP 6.2 g/dl (6.4-8.2)
== END 2024-05-04 06:58 | disposition left against medical advice (07) | DRG 894 ==
LOC: JD.ED 15:21 → JD.ICU 05-02 00:58
PROVIDERS: ADMIT Student in an Organized Health Care Education/Training Program; ATTEND Student in an Organized Health Care Education/Training Program
DX: F10.221 Alcohol dependence with intoxication delirium (principal); R44.3 Hallucinations, unspecified; F10.231 Alcohol dependence with withdrawal delirium; F10.232 Alcohol dependence with withdrawal with perceptual disturbance; K21.9 Gastro-esophageal reflux disease without esophagitis; F41.9 Anxiety disorder, unspecified; F17.210 Nicotine dependence, cigarettes, uncomplicated; D69.6 Thrombocytopenia, unspecified; F12.90 Cannabis use, unspecified, uncomplicated; E83.42 Hypomagnesemia; E87.6 Hypokalemia; E83.39 Other disorders of phosphorus metabolism; Z88.0 Allergy status to penicillin; Z88.1 Allergy status to other antibiotic agents; Z91.51 Personal history of suicidal behavior; Z90.89 Acquired absence of other organs; Z98.890 Other specified postprocedural states
CPT/HCPCS: 36415; 80048; 80053; 80306; 80307; 83735; 84100; 85025; 96361; 96365; 96375; 96376; 99284; 99285-25; A9270-GY; J2060; J2405; J3411; J3475; J3480; J3490; J7030; J7050

== ENCOUNTER 2024-05-25 16:03 | Inpatient (IN) | payer SELFPAY ==
[2024-05-25] MEDS: Sodium Chloride 0.9% 1,000 ML IV STA (16:30)
[2024-05-25] MEDS: Sodium Chloride 0.9% 10 ML Syringe FLUSH PRN (16:42)
[2024-05-25 16:45] LABS: HEMATOCRIT 45.9 % (42.0-52.0); HEMOGLOBIN 16.9 gm/dl (14.0-18.0); MEAN CORPUSCULAR HEMOGLOBIN 36.3 pg (28.0-32.0); MEAN CORPUSCULAR HGB CONC 36.8 g/dl (32.0-36.0); MEAN CORPUSCULAR VOLUME 98.5 fl (83.0-99.0); MEAN PLATELET VOLUME 10.5 fl (9.4-12.4); PLATELET COUNT,PLT 194 K/mm3 (150-400); RED BLOOD CELL COUNT 4.66 M/mm3 (4.52-5.90); WHITE BLOOD CELL COUNT,WBC 4.85 K/mm3 (3.9-11.3)
[2024-05-25 17:27] LABS: BAND PERCENT MAN 0 % (0-10); BASOPHILS PERCENT MAN 0 (0.2-1.2); EOSINOPHILS PERCENT MAN 3 % (0.8-7.0); LYMPHOCYTES % ATYPICAL MANUAL 0 %; LYMPHOCYTES PERCENT MAN 34 % (20-40); MONOCYTES PERCENT MAN 1 % (2-10)
[2024-05-25 17:28] LABS: PLATELET COUNT ESTIMATE ADEQUATE
[2024-05-25 17:35] LABS: A/G RATIO 1.2 (1-2); ALBUMIN 3.8 g/dl (3.4-5.0); ANION GAP 17.8 (5-15); BILIRUBIN TOTAL 0.9 mg/dL (0.2-1.0); CALCIUM 8.5 mg/dL (8.5-10.1); CREATININE 0.8 mg/dL (0.7-1.3); EST CRCL DRUG DOSING (CG) 141.94 mL/min; ETHANOL BLOOD MEDICAL 0.34 gm% (0.00); POTASSIUM,K 2.8 mEq/L (3.5-5.1); PROTEIN TOTAL,TP 7.1 g/dl (6.4-8.2); TSH 0.95 uIU/mL (0.358-3.74)
[2024-05-25] MEDS: Potassium Chloride 20 MEQ Tab.ER PO ONE (18:04)
[2024-05-25 18:30] LABS: BARBITURATE SCREEN,URINE NEGATIVE (CUTOFF=200); BENZODIAZEPINES SCREEN,URINE PRESUMPTIVE POSITIVE (CUTOFF=150); BUPRENORPHINE SCREEN,URINE NEGATIVE (CUTOFF=10); METHADONE SCREEN, URINE NEGATIVE (CUT0FF=200); METHAMPHETAMINES SCREEN, URINE NEGATIVE (CUTOFF=500); OXYCODONE SCREEN,URINE NEGATIVE (CUT0FF=100); THC SCREEN,URINE 20 NG/ML NEGATIVE (CUTOFF=50)
[2024-05-25] MEDS ORDERED: Sodium Chloride 0.9% 100 ML IV SCH (18:30)
[2024-05-25 18:37] LABS: AMPHETAMINES SCREEN, URINE NEGATIVE (CUTOFF=500)
[2024-05-25] MEDS: Iopamidol 755 Mg/ML 100 ML Bottle IVPUSH ONE (19:09)
[2024-05-26] MEDS: Ondansetron 4 MG/2 ML SDV IVPUSH ONE (00:55)
[2024-05-26] MEDS: LORazepam 2 MG/ML SDV IVPUSH ONE ×3 (00:56→10:05)
[2024-05-26] MEDS: Thiamine 200 MG/2 ML MDV IVPUSH SCH (10:15)
[2024-05-26] MEDS: Ondansetron 4 MG/2 ML SDV IV PRN (10:17)
[2024-05-26] MEDS: Pantoprazole 40 MG Tab.CR PO SCH (10:18)
[2024-05-26] MEDS: LORazepam 2 MG/ML SDV IV PRN ×2 (12:30→14:45)
[2024-05-26] MEDS: Acetaminophen 325 MG Tab PO PRN (12:34)
[2024-05-26] MEDS: Sodium Chloride 0.9% 1,000 ML IV SCH (12:38)
[2024-05-26] MEDS: chlordiazePOXIDE 25 MG Cap PO SCH (14:45)
[2024-05-27 11:56] LABS: BASOPHILS PERCENT AUTO 0.8 % (0.0-1.0); EOSINOPHILS ABSOLUTE AUTO 0.2 K/mm3 (0.0-0.4); EOSINOPHILS PERCENT AUTO 4.1 % (0.0-6.0); HEMATOCRIT 42.5 % (42.0-52.0); HEMOGLOBIN 15.2 gm/dl (14.0-18.0); IMMATURE GRAN ABSOLUTE AUTO 0.01 K/mm3 (0.00-0.05); IMMATURE GRAN PERCENT AUTO 0.2 % (0.0-0.4); LYMPHOCYTES PERCENT AUTO 19.7 % (24.0-44.0); MEAN CORPUSCULAR HEMOGLOBIN 36.4 pg (28.0-32.0); MEAN CORPUSCULAR HGB CONC 35.8 g/dl (32.0-36.0); MEAN CORPUSCULAR VOLUME 101.7 fl (83.0-99.0); MEAN PLATELET VOLUME 10.6 fl (9.4-12.4); MONOCYTES ABSOLUTE AUTO 0.5 K/mm3 (0.0-0.8); MONOCYTES PERCENT AUTO 9.2 % (0.0-8.0); NEUTROPHILS ABSOLUTE AUTO 3.2 K/mm3 (1.8-7.7); PLATELET COUNT,PLT 122 K/mm3 (150-400); RED BLOOD CELL COUNT 4.18 M/mm3 (4.52-5.90); WHITE BLOOD CELL COUNT,WBC 4.87 K/mm3 (3.9-11.3)
[2024-05-27] MEDS: chlordiazePOXIDE 25 MG Cap PO SCH (12:10)
[2024-05-27 12:50] LABS: SLIDE REVIEW ABNORMAL SMEAR
[2024-05-27 12:57] LABS: A/G RATIO 1.2 (1-2); ALBUMIN 3.1 g/dl (3.4-5.0); ANION GAP 12.3 (5-15); BILIRUBIN TOTAL 1.5 mg/dL (0.2-1.0); BUN/CREATININE RATIO 7.1 (14-18); CALCIUM 8.4 mg/dL (8.5-10.1); CREATININE 0.7 mg/dL (0.7-1.3); EST CRCL DRUG DOSING (CG) 162.22 mL/min; MAGNESIUM 1.4 mg/dL (1.8-2.4); POTASSIUM,K 3.3 mEq/L (3.5-5.1); PROTEIN TOTAL,TP 5.8 g/dl (6.4-8.2)
[2024-05-27] MEDS: Potassium Chloride 20 MEQ Tab.ER PO ONE (17:01)
[2024-05-27] MEDS: Magnesium Sulfate/Water 2 GM in Premix Bag 1 BAG IV ONE (17:01)
[2024-05-27] MEDS: LORazepam 2 MG/ML SDV IVPUSH PRN (17:06)
[2024-05-27] MEDS: Potassium Chloride 20 MEQ Tab.ER ONE (18:33)
[2024-05-27] MEDS: Magnesium Sulfate/Water 50 ML ONE (18:34)
[2024-05-28 05:46] LABS: HEMATOCRIT 47.8 % (42.0-52.0); MEAN CORPUSCULAR HGB CONC 35.4 g/dl (32.0-36.0); MEAN CORPUSCULAR VOLUME 101.9 fl (83.0-99.0); MEAN PLATELET VOLUME 11.4 fl (9.4-12.4); PLATELET COUNT,PLT 127 K/mm3 (150-400); RED BLOOD CELL COUNT 4.69 M/mm3 (4.52-5.90); WHITE BLOOD CELL COUNT,WBC 5.76 K/mm3 (3.9-11.3)
[2024-05-28 05:49] LABS: A/G RATIO 1.1 (1-2); ALBUMIN 3.3 g/dl (3.4-5.0); ANION GAP 10.5 (5-15); BUN/CREATININE RATIO 7.5 (14-18); CALCIUM 8.7 mg/dL (8.5-10.1); CREATININE 0.8 mg/dL (0.7-1.3); EST CRCL DRUG DOSING (CG) 141.94 mL/min; MAGNESIUM 1.6 mg/dL (1.8-2.4); POTASSIUM,K 3.5 mEq/L (3.5-5.1); PROTEIN TOTAL,TP 6.3 g/dl (6.4-8.2)
[2024-05-28 05:55] LABS: HEMOGLOBIN 16.9 gm/dl (14.0-18.0)
[2024-05-28] MEDS ORDERED: Sennosides 8.6 MG Tab PO PRN (17:04)
[2024-05-28] MEDS: Magnesium Sulfate/Water 4 GM in Premix Bag 1 BAG IV ONE (17:04)
[2024-05-28] MEDS: Potassium Chloride 20 MEQ Tab.ER PO ONE (17:04)
[2024-05-28] MEDS: chlordiazePOXIDE 25 MG Cap PO SCH (20:13)
[2024-05-29 05:41] LABS: HEPATITIS C AB NON-REACTIVE (Non-React)
[2024-05-29 06:10] LABS: FOLIC ACID 3.6 ng/mL (8.6-58.9)
[2024-05-29 06:24] LABS: ALBUMIN 3.2 g/dl (3.4-5.0); ANION GAP 11.9 (5-15); BILIRUBIN TOTAL 0.6 mg/dL (0.2-1.0); BUN/CREATININE RATIO 12.9 (14-18); CALCIUM 9.2 mg/dL (8.5-10.1); CREATININE 0.7 mg/dL (0.7-1.3); EST CRCL DRUG DOSING (CG) 162.22 mL/min; MAGNESIUM 2.2 mg/dL (1.8-2.4); POTASSIUM,K 3.9 mEq/L (3.5-5.1); PROTEIN TOTAL,TP 6.3 g/dl (6.4-8.2)
[2024-05-29] MEDS ORDERED: Folic Acid 1 MG Tab PO ONE (11:30)
== END 2024-05-29 11:37 | disposition home or self-care (01) | DRG 897 ==
LOC: JD.ED 16:03 → JD.ICU 05-26 07:05
PROVIDERS: ADMIT Internal Medicine; ATTEND Internal Medicine
DX: F10.139 Alcohol abuse with withdrawal, unspecified (principal); K21.9 Gastro-esophageal reflux disease without esophagitis; F10.121 Alcohol abuse with intoxication delirium; F41.9 Anxiety disorder, unspecified; R56.9 Unspecified convulsions; K29.20 Alcoholic gastritis without bleeding; K76.0 Fatty (change of) liver, not elsewhere classified; E87.6 Hypokalemia; Z88.0 Allergy status to penicillin; Z88.1 Allergy status to other antibiotic agents; Z90.49 Acquired absence of other specified parts of digestive tract
CPT/HCPCS: 36415; 71275; 71275-26; 76705; 76705-26; 80053; 80143; 80179; 80306; 80307; 82607; 82746; 83735; 84443; 85007; 85025; 85027; 85379; 86803; 93005; 94760; 96361; 96374; 96375; 96376; 99285-25; A9270-GY; J2060; J2405; J3411; J3475; J3490; J7030; Q9967